=== PATIENT | female | born 1940 | race Caucasian/White ===

== ENCOUNTER → 2018-05-11 15:27 | Outpatient (CLI) | payer OTHER, SELFPAY ==
--- NOTE | 2018-05-11 | DI.RAD.S_ITS ---
PROCEDURE: XR SHOULDER LT 1V INDICATIONS: PAIN TECHNIQUE: Single of the shoulder were acquired. COMPARISON: None. FINDINGS: Bones: No fractures or dislocations. No suspicious bony lesions. Visualized ribs appear intact. Moderate acromioclavicular and mild glenohumeral joint degeneration Soft tissues: No suspicious soft tissue calcifications. IMPRESSION: Left shoulder joint degeneration as above. Dictated by: Nic Adams M.D. on 05/11/2018 at 16:58 Approved by: Nic Adams M.D. on 05/11/2018 at 17:10
== END ==
PROVIDERS: PCP Physician Assistant; Visit Provider Student in an Organized Health Care Education/Training Program
DX: M25.512 Pain in left shoulder (principal); M19.012 Primary osteoarthritis, left shoulder
CPT/HCPCS: 73020

== ENCOUNTER → 2019-03-08 12:39 | Outpatient (CLI) | payer OTHER, SELFPAY | PROVIDERS: PCP Physician Assistant; Visit Provider Internal Medicine Rheumatology | DX: M85.832 Other specified disorders of bone density and structure, left forearm (principal); Z78.0 Asymptomatic menopausal state | CPT/HCPCS: 77080 ==

== ENCOUNTER → 2019-07-25 10:03 | Outpatient (CLI) | payer MEDICARE, MEDICAID, SELFPAY ==
--- NOTE | 2019-07-25 | DI.RAD.S_ITS ---
PROCEDURE: XR HIP W PEL IF DONE LT 2V INDICATIONS: Pain in left hip TECHNIQUE: 2 views of the hip were acquired. COMPARISON: None. FINDINGS: Bones: No fractures or dislocations but there is severe degenerative osteoarthritic change at the left hip, with [id number] articulation at the hip joint.. No suspicious bony lesions. The visualized pelvic ring appears intact. Soft tissues: No suspicious soft tissue calcifications or masses. 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 Dictated by: Sim Pimentel M.D. on 07/25/2019 at 12:55 Approved by: Sim Pimentel M.D. on 07/25/2019 at 12:56
[2019-07-25 10:51] LABS: Add Manual Diff / Slide Review NO; Basophils Absolute Auto 100 /uL (0-100); Basophils Percent Auto 1.1 % (0-2); Eosinophils Absolute Auto 100 /uL (0-450); Eosinophils Percent Auto 1.1 % (2-4); Hematocrit 39.9 % (36-46); Hemoglobin 13.7 g/dL (12.0-16.0); Lymphocytes Absolute Auto 1500 /uL (1100-4500); Lymphocytes Percent Auto 27.3 % (25-40); Mean Corpuscular HGB Conc 34.2 % (30-36); Mean Corpuscular Hemoglobin 31.5 PG (26-34); Mean Corpuscular Volume 92.1 fL (80-100); Monocytes Absolute Auto 700 /uL (0-900); Monocytes Percent Auto 12.7 % (3-14); Neutrophils Absolute Auto 3200 /uL (1500-7000); Neutrophils Percent Auto 57.8 % (50-75); Platelet Count 317 X10^3/uL (150-400); Red Blood Cell Count 4.34 X10^6/uL (4.0-5.2); Red Cell Distribution Width 13.7 % (11.6-14.8); White Blood Cell Count 5.5 X10^3/uL (4.5-11.0)
[2019-07-25 11:07] LABS: Hemoglobin A1C% w Est Avg Glu 5.5 % (4.0-6.0)
[2019-07-25 11:30] LABS: Alanine Aminotransferase 17 IU/L (<35); Albumin 3.9 g/dL (3.5-5.0); Albumin Globulin Ratio 1.6 (1.0-2.8); Alkaline Phosphatase 58 U/L (38-126); Aspartate Aminotransferase 23 IU/L (14-36); BUN Creatinine Ratio 17.5 (6-22); Bilirubin Total 0.6 mg/dL (0.2-1.3); Blood Urea Nitrogen 14 mg/dL (7-17); Calcium 9.7 mg/dL (8.4-10.2); Carbon Dioxide 28 mmol/L (22-32); Chloride 105 mmol/L (98-107); Cholesterol 221 mg/dL (140-199); Estimated Glomerular Filt Rate > 60.0 mL/min (>60); Globulin 2.5 g/dL (1.7-4.1); Glucose 92 mg/dL (80-110); HDL Cholesterol 77 mg/dL (40-60); HEMOLYSIS < 15 (0-50); LDL Cholesterol Calculated 118 mg/dL (<100); Potassium 3.9 mmol/L (3.4-5.1); Sodium 140 mmol/L (137-145); Total Protein 6.4 g/dL (6.3-8.2); Triglycerides 129 mg/dL (35-150)
== END ==
PROVIDERS: Referring Provider Student in an Organized Health Care Education/Training Program; Visit Provider Student in an Organized Health Care Education/Training Program
DX: E78.2 Mixed hyperlipidemia (principal); I10 Essential (primary) hypertension; R73.03 Prediabetes; M25.552 Pain in left hip
CPT/HCPCS: 36415; 73502; 80053; 80061; 83036; 85025

== ENCOUNTER 2020-01-31 16:20 | Observation (INO) | payer MEDICARE, MEDICAID, SELFPAY ==
[2020-01-31] VITALS (32 sets, daily range): BP systolic 80–144; BP diastolic 50–69; PULSE 77–95; RESP 9–32; TEMP 35.1–35.9; O2SAT 87–100
--- NOTE | 2020-01-31 16:28 | DI.RAD.S_ITS ---
PROCEDURE: XR CHEST 1V INDICATIONS: syncope TECHNIQUE: One view of the chest was acquired. COMPARISON: None. FINDINGS: Surgical changes and devices: None. Lungs and pleura: Lungs are clear. No pleural effusions or pneumothorax. Mediastinum: Mediastinal contours appear normal. Heart size is normal. Bones and chest wall: No suspicious bony lesions. Overlying soft tissues appear unremarkable. IMPRESSION: Source of syncopal episode is not found. Dictated by: Sim Pimentel M.D. on 01/31/2020 at 16:59 Approved by: Sim Pimentel M.D. on 01/31/2020 at 16:59
--- NOTE | 2020-01-31 16:29 | DI.CT.S_ITS ---
PROCEDURE: CT HEAD/BRAIN WO CON INDICATIONS: syncope TECHNIQUE: Noncontrast 4.5 mm thick angled axial sections acquired from the foramen magnum to the vertex, with coronal and sagittal reformats. For radiation dose reduction, the following was used: automated exposure control, adjustment of mA and/or kV according to patient size. COMPARISON: [facility], CR, XR CHEST 1V, 01/31/2020, 16:21. FINDINGS: Image quality: Excellent. CSF spaces: Basal cisterns are patent. No extra-axial fluid collections. The ventricles are symmetric in size and shape. Brain: No intracranial bleeds or masses. There is cerebral volume loss for age, with resultant ventricular and sulcal prominence. There are periventricular and deep white matter chronic small vessel ischemic changes. There is intracranial internal carotid artery atherosclerosis. Skull and face: Calvarium and visualized facial bones appear intact, without suspicious lesions. Sinuses: Visualized sinuses and mastoids are clear. IMPRESSION: Unremarkable intracranial study for age. No acute intracranial process is seen. If it would be helpful for clinical management decision making, please consider a dedicated brain MRI for further evaluation (assuming that there is no contraindication). Dictated by: Kvng Begum M.D. on 01/31/2020 at 15:45 Approved by: Kvng Begum M.D. on 01/31/2020 at 15:46
[2020-01-31] MEDS: SODIUM CHLORIDE 0.9% 1,000 ML 1000 ML IV ×2 (16:47→17:25)
--- NOTE | 2020-01-31 16:54 | ED_ITS ---
HPI - Syncope <Maria Del Carmen Lechuga DO - Last Filed: 02/01/20 10:48> General Chief Complaint: Syncope Stated Complaint: Near Syncope Time Seen by Provider: 01/31/20 16:27 Source: EMS Mode of arrival: EMS Limitations: no limitations History of Present Illness HPI narrative: Patient is a 79-year-old female who presents after near syncopal episode. Today she is in the kitchen making a spinach salad when she got extremely dizzy and lightheaded and felt like she might pass out. She feels dizzy she gets nauseated she said a few episodes of diarrhea with some abdominal cramping. She denies any weakness numbness or tingling. No visual changes. She was found to be hypotensive for EMS in received 1 L. she has never had anything like this in the past. Related Data Home Medications Medication Instructions Recorded Confirmed CHOLECALCIFEROL (VITAMIN D3) 1,000 iu PO QDAY #0 07/15/10 01/31/20 (Vitamin D3) MULTIVITAMIN (Multivitamin 1 cap PO EVERY DAY #0 07/28/10 01/31/20 -) lisinopril 10 mg PO DAILY 01/31/20 01/31/20 Allergies Allergy/AdvReac Type Severity Reaction Status Date / Time No Known Drug Allergies Allergy Verified 01/31/20 16:34 Review of Systems <DO Cornel Hurtado Last Filed: 02/01/20 10:48> Review of Systems ROS Unobtainable: All systems reviewed & are unremarkable except as noted in HPI and below Constitutional Constitutional: Reports chills, Denies fatigue and Denies frequent falls Eyes Eyes: Denies blind spots and Denies blurry vision ENT Ears, Nose, Mouth, and Throat: Denies change in voice, Reports vertigo, Reports dizziness, Denies neck pain and Denies sore throat Cardiovascular Cardiovascular: Denies chest pain, Denies edema, Reports lightheadedness, Denies dyspnea and Denies dyspnea on exertion Respiratory Respiratory: Denies cough, Denies dyspnea, Denies dyspnea on exertion and Denies wheezing Gastrointestinal Gastrointestinal: Reports abdominal pain, Reports diarrhea, Reports nausea and Reports vomiting Musculoskeletal Musculoskeletal: Denies back pain, Denies neck pain and Denies numbness Integumentary/Breasts Skin/Breast: Denies pruritus, Denies erythema, Denies rash and Denies wounds Neurologic Neurologic: Reports vertigo, Reports dizziness, Denies frequent falls, Denies memory loss and Denies numbness Psychiatric Psychiatric: Denies memory loss Endocrine Endocrine: Denies fatigue Allergic/Immunologic Allergic/Immunologic: Denies wheezing Patient History <Maria Del Carmen Lechuga DO - Last Filed: 02/01/20 10:48> Medical History Hypertension (Chronic) Surgical History History of right hip replacement (Acute) Family History Mother Diverticulosis of colon Father Abdominal aortic aneurysm Social History (Updated 01/31/20 @ 22:04 by CINDA Manzo) marital status: household members: spouse lives independently: Yes caregiver/support person: Yes occupational status: previously employed Previous occupational history: She and her are a [employer] leisure activities: music Smoking Status: Never smoker Smoking Status: Unknown if ever smoked alcohol intake frequency: a few times a week Substance Use Type: does not use Exam <Maria Del Carmen Lechuga DO - Last Filed: 02/01/20 10:48> Initial Vital Signs Initial Vital Signs: Vital Signs Temperature 95.1 F L 01/31/20 16:30 Pulse Rate 90 01/31/20 16:30 Respiratory Rate 15 01/31/20 16:30 Blood Pressure 96/54 L 01/31/20 16:30 Pulse Oximetry 99 01/31/20 16:30 GENERAL: Alert female appears ill HEENT: Head atraumatic,EOMI, no nystagmus pupils reactive, face symmetric, dry mucous membranes CARDIOVASCULAR: Regular rate and rhythm without murmurs, rubs or gallops. RESPIRATORY: Breath sounds equal bilaterally, no wheezes rales or rhonchi. ABDOMEN: Soft, nontender. Normoactive bowel sounds all 4 quadrants. No guarding or rebound. No pulsatile mass EXTREMITIES: Normal range of motion, no clubbing or edema. Neurovascularly intact NEUROLOGICAL: Alert and oriented x4. 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 <Levar Alvares MD - Last Filed: 02/01/20 00:01> Initial Vital Signs Initial Vital Signs: Vital Signs Temperature 95.1 F L 01/31/20 16:30 Pulse Rate 90 01/31/20 16:30 Respiratory Rate 15 01/31/20 16:30 Blood Pressure 96/54 L 01/31/20 16:30 Pulse Oximetry 99 01/31/20 16:30 Course <Maria Del Carmen Lechuga DO - Last Filed: 02/01/20 10:48> Orders Ordered: Acetaminophen (Tylenol) 650 mg PO Q6HR PRN PRN Reason: Fever/Mild Pain (1-3) Naloxone HCl (Narcan) 0.2 mg IV Q2MIN PRN PRN Reason: Opiate Reversal Ondansetron HCl (Zofran) 4 mg IV Q8HR PRN PRN Reason: Nausea And Vomiting Discontinued Medications Sodium Chloride (Normal Saline 0.9%) 1,000 mls @ 1,000 mls/hr IV CONT [facility] Last Infusion: 01/31/20 17:59 Dose: 0 mls/hr Documented by: Admin: 01/31/20 16:47 Dose: 1,000 mls/hr Documented by: CHAIM Sodium Chloride (Normal Saline 0.9%) 1,000 mls @ 1,000 mls/hr IV BOLUS ONE Stop: 01/31/20 18:14 Last Infusion: 01/31/20 18:23 Dose: 0 mls/hr Documented by: Admin: 01/31/20 17:25 Dose: 1,000 mls/hr Documented by: CHAIM Ceftriaxone Sodium/Dextrose (Rocephin) 2 gm in 50 mls @ 100 mls/hr IV NOW ONE Stop: 01/31/20 19:43 Last Infusion: 01/31/20 20:11 Dose: 100 mls/hr Documented by: Admin: 01/31/20 19:41 Dose: 100 mls/hr Documented by: JARONFARL Sodium Chloride (Normal Saline 0.9%) 1,000 mls @ 125 mls/hr IV CONT [facility] Last Admin: 01/31/20 21:58 Dose: 100 mls/hr Documented by: QUIRINOZ Piperacillin/Tazobactam/Dextrose (Zosyn) 4.5 gm in 100 mls @ 200 mls/hr IV Q6H [facility] Last Admin: 02/01/20 05:21 Dose: 200 mls/hr Documented by: Infusion: 02/01/20 01:00 Dose: 200 mls/hr Documented by: Admin: 02/01/20 00:30 Dose: 200 mls/hr Documented by: ABDELRAHMAN Metronidazole (Flagyl) 500 mg in 100 mls @ 100 mls/hr IV Q6H [facility] Last Admin: 02/01/20 05:21 Dose: 100 mls/hr Documented by: Infusion: 02/01/20 01:35 Dose: 100 mls/hr Documented by: Admin: 02/01/20 00:34 Dose: 100 mls/hr Documented by: ABDELRAHMAN Potassium Chloride 40 meq/ (Sodium Chloride) 520 mls @ 130 mls/hr IV NOW ONE Stop: 02/01/20 03:13 Last Infusion: 02/01/20 04:30 Dose: 130 mls/hr Documented by: ABDELRAHMAN Cosigned by: ELIZABETH Admin: 02/01/20 00:30 Dose: 130 mls/hr Documented by: ABDELRAHMAN Cosigned by: ELIZABETH Metronidazole (Flagyl) 500 mg in 100 mls @ 100 mls/hr IV Q6H [facility] Lorazepam (Ativan) 0.5 mg IV NOW ONE Stop: 01/31/20 17:46 Last Admin: 01/31/20 19:44 Dose: Not Given Documented by: JARONFARL Meclizine HCl (Antivert) 25 mg PO NOW ONE Stop: 01/31/20 18:10 Last Admin: 01/31/20 18:12 Dose: 25 mg Documented by: CHAIM Ondansetron HCl (Zofran) 4 mg IV NOW ONE Stop: 01/31/20 16:59 Last Admin: 01/31/20 17:06 Dose: 4 mg Documented by: CHAIM Potassium Chloride (Klor-Con M20) 40 meq PO NOW ONE Stop: 01/31/20 23:14 Last Admin: 02/01/20 00:33 Dose: 40 meq Documented by: ABDELRAHMAN Vital Signs Vital signs: Vital Signs - 8 hr 01/31/20 16:30 01/31/20 16:54 01/31/20 16:58 Temperature 95.1 F L Pulse Rate 90 88 84 Respiratory Rate 15 22 10 L Blood Pressure 96/54 L 80/50 L Pulse Oximetry 99 91 99 01/31/20 17:00 01/31/20 17:05 01/31/20 17:10 Temperature Pulse Rate 84 82 81 Respiratory Rate 9 L 19 10 L Blood Pressure 86/54 L 86/53 L 88/50 L Pulse Oximetry 95 87 L 96 01/31/20 17:33 01/31/20 17:34 01/31/20 17:36 Temperature Pulse Rate 90 90 91 H Respiratory Rate 15 26 H Blood Pressure 117/64 113/57 L Pulse Oximetry 99 100 99 01/31/20 17:40 01/31/20 17:46 01/31/20 17:50 Temperature Pulse Rate 92 H 94 H 95 H Respiratory Rate 32 H 23 22 Blood Pressure 128/59 L 88/54 L 94/58 L Pulse Oximetry 99 99 99 01/31/20 17:55 01/31/20 18:00 01/31/20 18:06 Temperature Pulse Rate 94 H 93 H 92 H Respiratory Rate 21 14 19 Blood Pressure 111/56 L 128/58 L 121/58 L Pulse Oximetry 98 91 98 01/31/20 18:10 01/31/20 18:15 01/31/20 18:20 Temperature Pulse Rate 92 H 89 87 Respiratory Rate 13 13 14 Blood Pressure 121/58 L 110/56 L 107/55 L Pulse Oximetry 96 97 99 01/31/20 18:25 01/31/20 18:30 01/31/20 18:35 Temperature Pulse Rate 87 86 83 Respiratory Rate 15 12 13 Blood Pressure 105/57 L 96/50 L 98/55 L Pulse Oximetry 92 99 99 01/31/20 18:40 01/31/20 18:51 01/31/20 19:00 Temperature Pulse Rate 81 77 79 Respiratory Rate 11 L 21 13 Blood Pressure 96/52 L 97/62 111/63 Pulse Oximetry 99 98 94 01/31/20 19:10 01/31/20 19:20 01/31/20 19:30 Temperature Pulse Rate 82 81 83 Respiratory Rate 20 15 21 Blood Pressure 92/65 101/64 99/63 Pulse Oximetry 99 99 97 01/31/20 19:40 01/31/20 19:50 01/31/20 20:00 Temperature Pulse Rate 84 84 82 Respiratory Rate 13 12 19 Blood Pressure 118/65 126/68 114/60 Pulse Oximetry 98 98 100 <Levar Alvares MD - Last Filed: 02/01/20 00:01> Course Course Narrative: Sign-out from Dr. lechuga, awaiting for repeat labs and reassessment. Time 7:00 p.m.. Time 7:10 p.m.. Patient had large bright red blood per rectum. Not toxic at this time. Paging general surgery as well as hospitalist for admission. Decision to Admit Date: 01/31/20 Decision to Admit time: 19:10 Orders Ordered: Acetaminophen (Tylenol) 650 mg PO Q6HR PRN PRN Reason: Fever/Mild Pain (1-3) Naloxone HCl (Narcan) 0.2 mg IV Q2MIN PRN PRN Reason: Opiate Reversal Ondansetron HCl (Zofran) 4 mg IV Q8HR PRN PRN Reason: Nausea And Vomiting Discontinued Medications Sodium Chloride (Normal Saline 0.9%) 1,000 mls @ 1,000 mls/hr IV CONT [facility] Last Infusion: 01/31/20 17:59 Dose: 0 mls/hr Documented by: Admin: 01/31/20 16:47 Dose: 1,000 mls/hr Documented by: CHAIM Sodium Chloride (Normal Saline 0.9%) 1,000 mls @ 1,000 mls/hr IV BOLUS ONE Stop: 01/31/20 18:14 Last Infusion: 01/31/20 18:23 Dose: 0 mls/hr Documented by: Admin: 01/31/20 17:25 Dose: 1,000 mls/hr Documented by: CHAIM Ceftriaxone Sodium/Dextrose (Rocephin) 2 gm in 50 mls @ 100 mls/hr IV NOW ONE Stop: 01/31/20 19:43 Last Infusion: 01/31/20 20:11 Dose: 100 mls/hr Documented by: Admin: 01/31/20 19:41 Dose: 100 mls/hr Documented by: JARONFARL Sodium Chloride (Normal Saline 0.9%) 1,000 mls @ 125 mls/hr IV CONT [facility] Last Admin: 01/31/20 21:58 Dose: 100 mls/hr Documented by: TARIK Piperacillin/Tazobactam/Dextrose (Zosyn) 4.5 gm in 100 mls @ 200 mls/hr IV Q6H [facility] Last Admin: 02/01/20 05:21 Dose: 200 mls/hr Documented by: Infusion: 02/01/20 01:00 Dose: 200 mls/hr Documented by: Admin: 02/01/20 00:30 Dose: 200 mls/hr Documented by: ABDELRAHMAN Metronidazole (Flagyl) 500 mg in 100 mls @ 100 mls/hr IV Q6H [facility] Last Admin: 02/01/20 05:21 Dose: 100 mls/hr Documented by: Infusion: 02/01/20 01:35 Dose: 100 mls/hr Documented by: Admin: 02/01/20 00:34 Dose: 100 mls/hr Documented by: ABDELRAHMAN Potassium Chloride 40 meq/ (Sodium Chloride) 520 mls @ 130 mls/hr IV NOW ONE Stop: 02/01/20 03:13 Last Infusion: 02/01/20 04:30 Dose: 130 mls/hr Documented by: ABDELRAHMAN Cosigned by: ELIZABETH Admin: 02/01/20 00:30 Dose: 130 mls/hr Documented by: ABDELRAHMAN Cosigned by: ELIZABETH Metronidazole (Flagyl) 500 mg in 100 mls @ 100 mls/hr IV Q6H [facility] Lorazepam (Ativan) 0.5 mg IV NOW ONE Stop: 01/31/20 17:46 Last Admin: 01/31/20 19:44 Dose: Not Given Documented by: MMCFARL Meclizine HCl (Antivert) 25 mg PO NOW ONE Stop: 01/31/20 18:10 Last Admin: 01/31/20 18:12 Dose: 25 mg Documented by: CHAIM Ondansetron HCl (Zofran) 4 mg IV NOW ONE Stop: 01/31/20 16:59 Last Admin: 01/31/20 17:06 Dose: 4 mg Documented by: CHAIM Potassium Chloride (Klor-Con M20) 40 meq PO NOW ONE Stop: 01/31/20 23:14 Last Admin: 02/01/20 00:33 Dose: 40 meq Documented by: RMCDONOUGH Reevaluation(s) Reevaluation #1: Slowing down on rectal bleeding. Time: 19:28 Consultations Consultation #1: Spoke with general surgery Dr. Noyola, he will follow along. Agrees at this time no Protonix as likely lower GI bleed. Time: 19:28 Consultation #2: Spoke with hospitalist, Chelsie, does not want patient to go ICU. Will admit. Time: 19:47 Vital Signs Vital signs: Vital Signs - 8 hr 01/31/20 16:30 01/31/20 16:54 01/31/20 16:58 Temperature 95.1 F L Pulse Rate 90 88 84 Respiratory Rate 15 22 10 L Blood Pressure 96/54 L 80/50 L Pulse Oximetry 99 91 99 01/31/20 17:00 01/31/20 17:05 01/31/20 17:10 Temperature Pulse Rate 84 82 81 Respiratory Rate 9 L 19 10 L Blood Pressure 86/54 L 86/53 L 88/50 L Pulse Oximetry 95 87 L 96 01/31/20 17:33 01/31/20 17:34 01/31/20 17:36 Temperature Pulse Rate 90 90 91 H Respiratory Rate 15 26 H Blood Pressure 117/64 113/57 L Pulse Oximetry 99 100 99 01/31/20 17:40 01/31/20 17:46 01/31/20 17:50 Temperature Pulse Rate 92 H 94 H 95 H Respiratory Rate 32 H 23 22 Blood Pressure 128/59 L 88/54 L 94/58 L Pulse Oximetry 99 99 99 01/31/20 17:55 01/31/20 18:00 01/31/20 18:06 Temperature Pulse Rate 94 H 93 H 92 H Respiratory Rate 21 14 19 Blood Pressure 111/56 L 128/58 L 121/58 L Pulse Oximetry 98 91 98 01/31/20 18:10 01/31/20 18:15 01/31/20 18:20 Temperature Pulse Rate 92 H 89 87 Respiratory Rate 13 13 14 Blood Pressure 121/58 L 110/56 L 107/55 L Pulse Oximetry 96 97 99 01/31/20 18:25 01/31/20 18:30 01/31/20 18:35 Temperature Pulse Rate 87 86 83 Respiratory Rate 15 12 13 Blood Pressure 105/57 L 96/50 L 98/55 L Pulse Oximetry 92 99 99 01/31/20 18:40 01/31/20 18:51 01/31/20 19:00 Temperature Pulse Rate 81 77 79 Respiratory Rate 11 L 21 13 Blood Pressure 96/52 L 97/62 111/63 Pulse Oximetry 99 98 94 01/31/20 19:10 01/31/20 19:20 01/31/20 19:30 Temperature Pulse Rate 82 81 83 Respiratory Rate 20 15 21 Blood Pressure 92/65 101/64 99/63 Pulse Oximetry 99 99 97 01/31/20 19:40 01/31/20 19:50 01/31/20 20:00 Temperature Pulse Rate 84 84 82 Respiratory Rate 13 12 19 Blood Pressure 118/65 126/68 114/60 Pulse Oximetry 98 98 100 MDM - Syncope <Maria Del Carmen Lechuga DO - Last Filed: 02/01/20 10:48> Lab Data Attestation: I reviewed the patient's lab results. Result diagrams: 02/01/20 05:01 02/01/20 05:01 Labs: Lab Results 01/31/20 01/31/20 01/31/20 Range/Units 16:53 16:53 16:53 WBC 20.0 H (4.5-11.0) X10^3/uL RBC 4.83 (4.0-5.2) X10^6/uL Hgb 14.9 (12.0-16.0) g/dL Hct 45.5 (36-46) % MCV 94.2 (80-100) fL MCH 30.9 (26-34) PG MCHC 32.8 (30-36) % RDW 13.1 (11.6-14.8) % Plt Count 321 (150-400) X10^3/uL Neut % (Auto) 81.6 H (50-75) % Lymph % (Auto) 10.6 L (25-40) % [place] % (Auto) 5.1 (3-14) % Eos % (Auto) 1.4 L (2-4) % Baso % (Auto) 1.3 (0-2) % Neut # (Auto) 15490 H (9848-9846) /uL Lymph # (Auto) 2100 (9118-0885) /uL [place] # (Auto) 1000 H (0-900) /uL Eos # (Auto) 300 (0-450) /uL Baso # (Auto) 300 H (0-100) /uL Sodium 137 (137-145) mmol/L Potassium 3.3 L (3.4-5.1) mmol/L Chloride 106 (98-107) mmol/L Carbon Dioxide 19 L (22-32) mmol/L BUN 26 H (7-17) mg/dL Creatinine 0.99 (0.52-1.04) mg/dL Estimated GFR 54.1 L (>60) mL/min BUN/Creatinine Ratio 26.3 H (6-22) Glucose 160 H (80-110) mg/dL Lactate 4.0 H (0.7-2.1) mmol/L Calcium 10.0 (8.4-10.2) mg/dL Magnesium 1.6 (1.6-2.3) mg/dL Total Bilirubin 0.7 (0.2-1.3) mg/dL AST 36 (14-36) IU/L ALT 18 (<35) IU/L Alkaline Phosphatase 74 (38-126) U/L Total Creatine Kinase 53 (30-135) U/L CK-MB (CK-2) TNP CK-MB (CK-2) Rel Index TNP Troponin I < 0.012 (0.01-0.034) ng/mL NT-Pro-B Natriuret Pep 249 (<450) pg/mL Total Protein 5.8 L (6.3-8.2) g/dL Albumin 3.5 (3.5-5.0) g/dL Globulin 2.3 (1.7-4.1) g/dL Albumin/Globulin Ratio 1.5 (1.0-2.8) Procalcitonin (<0.5) ng/mL Urine RBC (0-5/HPF) Urine WBC (0-5/HPF) Ur Squamous Epith Cells (0-5/HPF) Urine Bacteria (None) Ur Culture Indicated? COVID-19 PCR (Negative) Blood Type Antibody Screen 01/31/20 01/31/20 01/31/20 Range/Units 16:58 18:00 19:00 WBC (4.5-11.0) X10^3/uL RBC (4.0-5.2) X10^6/uL Hgb (12.0-16.0) g/dL Hct (36-46) % MCV (80-100) fL MCH (26-34) PG MCHC (30-36) % RDW (11.6-14.8) % Plt Count (150-400) X10^3/uL Neut % (Auto) (50-75) % Lymph % (Auto) (25-40) % [place] % (Auto) (3-14) % Eos % (Auto) (2-4) % Baso % (Auto) (0-2) % Neut # (Auto) (7169-8973) /uL Lymph # (Auto) (9738-9515) /uL [place] # (Auto) (0-900) /uL Eos # (Auto) (0-450) /uL Baso # (Auto) (0-100) /uL Sodium (137-145) mmol/L Potassium (3.4-5.1) mmol/L Chloride (98-107) mmol/L Carbon Dioxide (22-32) mmol/L BUN (7-17) mg/dL Creatinine (0.52-1.04) mg/dL Estimated GFR (>60) mL/min BUN/Creatinine Ratio (6-22) Glucose (80-110) mg/dL Lactate 2.5 H (0.7-2.1) mmol/L Calcium (8.4-10.2) mg/dL Magnesium (1.6-2.3) mg/dL Total Bilirubin (0.2-1.3) mg/dL AST (14-36) IU/L ALT (<35) IU/L Alkaline Phosphatase (38-126) U/L Total Creatine Kinase (30-135) U/L CK-MB (CK-2) CK-MB (CK-2) Rel Index Troponin I (0.01-0.034) ng/mL NT-Pro-B Natriuret Pep (<450) pg/mL Total Protein (6.3-8.2) g/dL Albumin (3.5-5.0) g/dL Globulin (1.7-4.1) g/dL Albumin/Globulin Ratio (1.0-2.8) Procalcitonin < 0.05 (<0.5) ng/mL Urine RBC 5-10/hpf H (0-5/HPF) Urine WBC 0-1/hpf (0-5/HPF) Ur Squamous Epith Cells 0-1 /hpf (0-5/HPF) Urine Bacteria Occasional (0-1) (None) Ur Culture Indicated? Cult not indicated COVID-19 PCR (Negative) Blood Type Antibody Screen 01/31/20 01/31/20 01/31/20 Range/Units 19:15 19:46 19:46 WBC 21.7 H (4.5-11.0) X10^3/uL RBC 4.60 (4.0-5.2) X10^6/uL Hgb 14.2 (12.0-16.0) g/dL Hct 42.8 (36-46) % MCV 93.2 (80-100) fL MCH 30.9 (26-34) PG MCHC 33.2 (30-36) % RDW 12.8 (11.6-14.8) % Plt Count 290 (150-400) X10^3/uL Neut % (Auto) 82.8 H (50-75) % Lymph % (Auto) 5.4 L (25-40) % [place] % (Auto) 11.1 (3-14) % Eos % (Auto) 0.2 L (2-4) % Baso % (Auto) 0.5 (0-2) % Neut # (Auto) 86948 H (3732-2031) /uL Lymph # (Auto) 1200 (0216-3124) /uL [place] # (Auto) 2400 H (0-900) /uL Eos # (Auto) 0 (0-450) /uL Baso # (Auto) 100 (0-100) /uL Sodium (137-145) mmol/L Potassium (3.4-5.1) mmol/L Chloride (98-107) mmol/L Carbon Dioxide (22-32) mmol/L BUN (7-17) mg/dL Creatinine (0.52-1.04) mg/dL Estimated GFR (>60) mL/min BUN/Creatinine Ratio (6-22) Glucose (80-110) mg/dL Lactate (0.7-2.1) mmol/L Calcium (8.4-10.2) mg/dL Magnesium (1.6-2.3) mg/dL Total Bilirubin (0.2-1.3) mg/dL AST (14-36) IU/L ALT (<35) IU/L Alkaline Phosphatase (38-126) U/L Total Creatine Kinase (30-135) U/L CK-MB (CK-2) CK-MB (CK-2) Rel Index Troponin I (0.01-0.034) ng/mL NT-Pro-B Natriuret Pep (<450) pg/mL Total Protein (6.3-8.2) g/dL Albumin (3.5-5.0) g/dL Globulin (1.7-4.1) g/dL Albumin/Globulin Ratio (1.0-2.8) Procalcitonin (<0.5) ng/mL Urine RBC (0-5/HPF) Urine WBC (0-5/HPF) Ur Squamous Epith Cells (0-5/HPF) Urine Bacteria (None) Ur Culture Indicated? COVID-19 PCR Negative (Negative) Blood Type O Positive Antibody Screen Negative Point of Care Testing Stool Occult Blood Positive Urine Dip Bedside Urine Glucose Negative Bedside Urine Bilirubin - Negative Bedside Urine Ketone - Negative Urine Specific [place] 1.015 Bedside Urine Occult Blood +/- Bedside Urine pH 8.0 Bedside Urine Protein + 30 Bedside Urine Urobilinogen - Negative Bedside Urine Nitrite - Negative Bedside Urine Leukocytes - Negative Esterase Imaging Data CT scan - head: Radiologist's Impression: PROCEDURE: CT HEAD/BRAIN WO CON INDICATIONS: syncope TECHNIQUE: Noncontrast 4.5 mm thick angled axial sections acquired from the foramen magnum to the vertex, with coronal and sagittal reformats. For radiation dose reduction, the following was used: automated exposure control, adjustment of mA and/or kV according to patient size. COMPARISON: [facility], CR, XR CHEST 1V, 01/31/2020, 16:21. FINDINGS: Image quality: Excellent. CSF spaces: Basal cisterns are patent. No extra-axial fluid collections. The ventricles are symmetric in size and shape. Brain: No intracranial bleeds or masses. There is cerebral volume loss for age, with resultant ventricular and sulcal prominence. There are periventricular and deep white matter chronic small vessel ischemic changes. There is intracranial internal carotid artery atherosclerosis. Skull and face: Calvarium and visualized facial bones appear intact, without suspicious lesions. Sinuses: Visualized sinuses and mastoids are clear. IMPRESSION: Unremarkable intracranial study for age. No acute intracranial process is seen. If it would be helpful for clinical management decision making, please consider a dedicated brain MRI for further evaluation (assuming that there is no contraindication). Dictated by: Kvng Begum M.D. on 01/31/2020 at 15:45 Approved by: Kvng Begum M.D. on 01/31/2020 at 15:46 CTA - brain/neck: Radiologist's Impression: PROCEDURE: CT ANGIO HEAD AND NECK INDICATIONS: dizzy and hypotensive TECHNIQUE: Noncontrast images were performed earlier in the day and not repeated. After the administration of intravenous contrast, 1 mm thick sections acquired from the aortic arch through the [place]. Post-contrast 4.5 mm thick sections then re- acquired from the foramen magnum to the vertex. 3-dimensional [id number] (MIP) and/or volume rendering reformats were acquired of the central intracranial vasculature and neck separately. COMPARISON: [facility], CT, CT HEAD/BRAIN WO CON, 01/31/2020, 16:34. [facility], CT, CT ANGIO CHEST ABDOMEN PELVIS, 01/31/2020, 17:11. FINDINGS: Image quality: Excellent. BRAIN: CSF spaces: Ventricles are normal in size and shape. Basal cisterns are patent. No extra-axial fluid collections. Brain: No midline shift. No intracranial bleeds or masses. [place]-white matter interface appears intact. Skull and face: Calvarium and facial bones appear intact, without suspicious lesions. Orbits appear normal. Incidental note is made of hyperostosis frontalis. This is not considered to be pathologic in a woman of this age. Sinuses: Sinuses and mastoids are clear. HEAD CT ANGIOGRAPHY: Anterior circulation: Intracranial internal carotid arteries are normal in size and flow. The flow within the paired anterior cerebral arteries is normal and symmetric. The flow within the middle cerebral arteries is normal and symmetric. The anterior communicating artery is seen. No aneurysms are seen. Posterior circulation: Visualized portions of the vertebral arteries demonstrate normal caliber, and join to form a normal appearing basilar artery. There is a prominent left posterior communicating artery seen, with an accompanying diminutive left P1 segment. This is attributed to a type origin of the left posterior cerebral artery, which is considered to be a normal developmental variant of typically no clinical conseq uence. Flow within the posterior cerebral arteries is normal and symmetric. No aneurysms are seen. NECK CT ANGIOGRAPHY: Carotid system: The great vessels demonstrate a conventional anatomy as they arise from the aortic arch. The origins of the common carotid arteries appear patent. The common carotid arteries demonstrate normal caliber and courses. The bifurcation regions are both widely patent. The internal carotid arteries demonstrate normal calibers and courses. Posterior circulation: The origins of the vertebral arteries both appear widely patent. The more superior extracranial portions of both vertebral arteries also demonstrate normal courses and calibers. They join to form a normal appearing basilar artery. Soft tissues: Visualized neck soft tissues demonstrate no suspicious abnormalities. There is a right thyroid nodule seen that measures up to 13 millimeters craniocaudal. Bones: No suspicious bony lesions. Visualized cervical spine appears normally aligned. Moderate cervical spine degenerative changes are seen. IMPRESSION: No significant intracranial arterial abnormality is seen. Within the arteries of the neck, no hemodynamically significant stenosis can be seen. Right thyroid nodule incidentally noted. If clinically appropriate, please consider a follow-up thyroid ultrasound for further evaluation. Incidental note is made of: type origin of the left posterior cerebral artery. Any quantitative measurements of stenosis were performed using NASCET criteria. Dictated by: Kvng Begum M.D. on 01/31/2020 at 16:48 Approved by: Kvng Begum M.D. on 01/31/2020 at 16:56 CT scan - abdomen/pelvis: Radiologist's Impression: PROCEDURE: CT ANGIO CHEST ABDOMEN PELVIS INDICATIONS: dizzy hypotensinve TECHNIQUE: Precontrast 5 mm thick sections acquired from the lung apices to the iliac crests. After the administration of intravenous contrast, 2.5 mm thick sections again acquired from the lung apices to the iliac crests. Maximum intensity projection (MIP) oblique sagittal and coronal reformats were then acquired. For radiation dose reduction, the following was used: automated exposure control. COMPARISON: None. FINDINGS: Image quality: Excellent. AORTA: No evidence of aortic dissection, aneurysm, or significant stenosis. CHEST: Lungs and pleura: No acute airspace opacities. No pleural effusions or pneumothorax. Central and peripheral airways are patent and normal in caliber. Mediastinum: Heart size is normal. No pericardial effusion. No mediastinal or hilar adenopathy by size criteria. Central pulmonary arteries are normal in size. Esophagus is normal in caliber. No hiatal hernias. Bones and chest wall: No axillary adenopathy by size criteria. Thyroid gland demonstrates bilateral nodules, measuring 11 mm on the right and roughly 4 mm and 5 mm on the left.. No suspicious bony lesions. No vertebral body compression fractures. ABDOMEN: Vasculature: Celiac trunk and mesenteric arteries are patent. Renal arteries are also patent. Solid organs: Liver is normal in size and enhancement. Gallbladder is within normal limits . Biliary system is non dilated. Pancreas enhances normally. Spleen is normal in size and enhancement. No adrenal nodules. Both kidneys are normal in size and enhancement, without hydronephrosis. Peritoneum and bowel: No pneumoperitoneum. Trace free fluid within the pelvis. No significant bowel distension. Stomach is nondistended. There is thickening of multiple small bowel loops throughout the central and left hemiabdomen predominantly, as well as the descending colon and rectum. There is fluid within the right colon. Appendix is within normal limits. Nodes and vessels: No retroperitoneal or mesenteric adenopathy by size criteria. Inferior vena cava is normal in morphology. Miscellaneous: No ventral hernias. PELVIS: Genitourinary: Bladder wall thickness is normal. Miscellaneous: No inguinal hernias or adenopathy. No ventral hernias. Bones: No suspicious bony lesions. Right hip arthroplasty. No vertebral body compression fractures. IMPRESSION: 1. No acute process involving the thoracoabdominal aorta. 2. Thickening of multiple small and large bowel loops. Differential considerations include ischemia, infection, and inflammation. Trace amount of reactive fluid within the peritoneal cavity. 3. Normal appendix. 4. Small hiatal hernia. Dictated by: Linda Brewster M.D. on 01/31/2020 at 17:44 Approved by: Linda Brewster M.D. on 01/31/2020 at 17:47 ECG Data Attestation: I personally reviewed and interpreted this ECG as follows: Prior ECG tracings: available for review Interpretation: Normal sinus rhythm rate 88 p.r. interval 138 QRS [address] changes MDM Narrative Medical decision making narrative: Patient extremely dizzy with any sort of movement and noted to be hypotensive significantly initially upon arrival. Initial head CT is negative however persistently hypotensive despite IV fluid and having some abdominal cramping. Concern for possible posterior stroke versus abdominal abnormality. CT angio head and neck chest abdomen pelvis are essentially negative. No aneurysm. She has been nauseous despite Zofran. However when she returned from CT her blood pressure was normalizing patient's symptoms seem to be resolving. She is given 1 dose of meclizine. Patient is now able to open her eyes but still does not feel quite right. Blood pressure again is dropping slightly. She continues to be cold. She is found have a lactic at acid of 4 and leukocytosis of 20 however she is afebrile and this does not seem to clinically that sepsis/Infectious picture. Patient is signed out to for further treatment <Levar Alvares MD - Last Filed: 02/01/20 00:01> Lab Data Labs: Lab Results 01/31/20 01/31/20 01/31/20 Range/Units 16:53 16:53 16:53 WBC 20.0 H (4.5-11.0) X10^3/uL RBC 4.83 (4.0-5.2) X10^6/uL Hgb 14.9 (12.0-16.0) g/dL Hct 45.5 (36-46) % MCV 94.2 (80-100) fL MCH 30.9 (26-34) PG MCHC 32.8 (30-36) % RDW 13.1 (11.6-14.8) % Plt Count 321 (150-400) X10^3/uL Neut % (Auto) 81.6 H (50-75) % Lymph % (Auto) 10.6 L (25-40) % [place] % (Auto) 5.1 (3-14) % Eos % (Auto) 1.4 L (2-4) % Baso % (Auto) 1.3 (0-2) % Neut # (Auto) 46822 H (8896-6034) /uL Lymph # (Auto) 2100 (9825-5994) /uL [place] # (Auto) 1000 H (0-900) /uL Eos # (Auto) 300 (0-450) /uL Baso # (Auto) 300 H (0-100) /uL Sodium 137 (137-145) mmol/L Potassium 3.3 L (3.4-5.1) mmol/L Chloride 106 (98-107) mmol/L Carbon Dioxide 19 L (22-32) mmol/L BUN 26 H (7-17) mg/dL Creatinine 0.99 (0.52-1.04) mg/dL Estimated GFR 54.1 L (>60) mL/min BUN/Creatinine Ratio 26.3 H (6-22) Glucose 160 H (80-110) mg/dL Lactate 4.0 H (0.7-2.1) mmol/L Calcium 10.0 (8.4-10.2) mg/dL Magnesium 1.6 (1.6-2.3) mg/dL Total Bilirubin 0.7 (0.2-1.3) mg/dL AST 36 (14-36) IU/L ALT 18 (<35) IU/L Alkaline Phosphatase 74 (38-126) U/L Total Creatine Kinase 53 (30-135) U/L CK-MB (CK-2) TNP CK-MB (CK-2) Rel Index TNP Troponin I < 0.012 (0.01-0.034) ng/mL NT-Pro-B Natriuret Pep 249 (<450) pg/mL Total Protein 5.8 L (6.3-8.2) g/dL Albumin 3.5 (3.5-5.0) g/dL Globulin 2.3 (1.7-4.1) g/dL Albumin/Globulin Ratio 1.5 (1.0-2.8) Procalcitonin (<0.5) ng/mL Urine RBC (0-5/HPF) Urine WBC (0-5/HPF) Ur Squamous Epith Cells (0-5/HPF) Urine Bacteria (None) Ur Culture Indicated? COVID-19 PCR (Negative) Blood Type Antibody Screen 01/31/20 01/31/20 01/31/20 Range/Units 16:58 18:00 19:00 WBC (4.5-11.0) X10^3/uL RBC (4.0-5.2) X10^6/uL Hgb (12.0-16.0) g/dL Hct (36-46) % MCV (80-100) fL MCH (26-34) PG MCHC (30-36) % RDW (11.6-14.8) % Plt Count (150-400) X10^3/uL Neut % (Auto) (50-75) % Lymph % (Auto) (25-40) % [place] % (Auto) (3-14) % Eos % (Auto) (2-4) % Baso % (Auto) (0-2) % Neut # (Auto) (9745-6079) /uL Lymph # (Auto) (8981-0858) /uL [place] # (Auto) (0-900) /uL Eos # (Auto) (0-450) /uL Baso # (Auto) (0-100) /uL Sodium (137-145) mmol/L Potassium (3.4-5.1) mmol/L Chloride (98-107) mmol/L Carbon Dioxide (22-32) mmol/L BUN (7-17) mg/dL Creatinine (0.52-1.04) mg/dL Estimated GFR (>60) mL/min BUN/Creatinine Ratio (6-22) Glucose (80-110) mg/dL Lactate 2.5 H (0.7-2.1) mmol/L Calcium (8.4-10.2) mg/dL Magnesium (1.6-2.3) mg/dL Total Bilirubin (0.2-1.3) mg/dL AST (14-36) IU/L ALT (<35) IU/L Alkaline Phosphatase (38-126) U/L Total Creatine Kinase (30-135) U/L CK-MB (CK-2) CK-MB (CK-2) Rel Index Troponin I (0.01-0.034) ng/mL NT-Pro-B Natriuret Pep (<450) pg/mL Total Protein (6.3-8.2) g/dL Albumin (3.5-5.0) g/dL Globulin (1.7-4.1) g/dL Albumin/Globulin Ratio (1.0-2.8) Procalcitonin < 0.05 (<0.5) ng/mL Urine RBC 5-10/hpf H (0-5/HPF) Urine WBC 0-1/hpf (0-5/HPF) Ur Squamous Epith Cells 0-1 /hpf (0-5/HPF) Urine Bacteria Occasional (0-1) (None) Ur Culture Indicated? Cult not indicated COVID-19 PCR (Negative) Blood Type Antibody Screen 01/31/20 01/31/20 01/31/20 Range/Units 19:15 19:46 19:46 WBC 21.7 H (4.5-11.0) X10^3/uL RBC 4.60 (4.0-5.2) X10^6/uL Hgb 14.2 (12.0-16.0) g/dL Hct 42.8 (36-46) % MCV 93.2 (80-100) fL MCH 30.9 (26-34) PG MCHC 33.2 (30-36) % RDW 12.8 (11.6-14.8) % Plt Count 290 (150-400) X10^3/uL Neut % (Auto) 82.8 H (50-75) % Lymph % (Auto) 5.4 L (25-40) % [place] % (Auto) 11.1 (3-14) % Eos % (Auto) 0.2 L (2-4) % Baso % (Auto) 0.5 (0-2) % Neut # (Auto) 71893 H (1187-6885) /uL Lymph # (Auto) 1200 (9798-2154) /uL [place] # (Auto) 2400 H (0-900) /uL Eos # (Auto) 0 (0-450) /uL Baso # (Auto) 100 (0-100) /uL Sodium (137-145) mmol/L Potassium (3.4-5.1) mmol/L Chloride (98-107) mmol/L Carbon Dioxide (22-32) mmol/L BUN (7-17) mg/dL Creatinine (0.52-1.04) mg/dL Estimated GFR (>60) mL/min BUN/Creatinine Ratio (6-22) Glucose (80-110) mg/dL Lactate (0.7-2.1) mmol/L Calcium (8.4-10.2) mg/dL Magnesium (1.6-2.3) mg/dL Total Bilirubin (0.2-1.3) mg/dL AST (14-36) IU/L ALT (<35) IU/L Alkaline Phosphatase (38-126) U/L Total Creatine Kinase (30-135) U/L CK-MB (CK-2) CK-MB (CK-2) Rel Index Troponin I (0.01-0.034) ng/mL NT-Pro-B Natriuret Pep (<450) pg/mL Total Protein (6.3-8.2) g/dL Albumin (3.5-5.0) g/dL Globulin (1.7-4.1) g/dL Albumin/Globulin Ratio (1.0-2.8) Procalcitonin (<0.5) ng/mL Urine RBC (0-5/HPF) Urine WBC (0-5/HPF) Ur Squamous Epith Cells (0-5/HPF) Urine Bacteria (None) Ur Culture Indicated? COVID-19 PCR Negative (Negative) Blood Type O Positive Antibody Screen Negative Point of Care Testing Stool Occult Blood Positive Urine Dip Bedside Urine Glucose Negative Bedside Urine Bilirubin - Negative Bedside Urine Ketone - Negative Urine Specific [place] 1.015 Bedside Urine Occult Blood +/- Bedside Urine pH 8.0 Bedside Urine Protein + 30 Bedside Urine Urobilinogen - Negative Bedside Urine Nitrite - Negative Bedside Urine Leukocytes - Negative Esterase Discharge Plan Departure Patient Disposition: Admitted As Inpatient Clinical Impression: Thyroid nodule, Vertigo, Acute GI bleeding Discharge Date/Time: 01/31/20 20:20 Admit Date/Time: 01/31/20 20:06 Admit Provider: Jaida Adams
--- NOTE | 2020-01-31 16:58 | DI.CT.S_ITS ---
PROCEDURE: CT ANGIO HEAD AND NECK INDICATIONS: dizzy and hypotensive TECHNIQUE: Noncontrast images were performed earlier in the day and not repeated. After the administration of intravenous contrast, 1 mm thick sections acquired from the aortic arch through the [place]. Post-contrast 4.5 mm thick sections then re-acquired from the foramen magnum to the vertex. 3-dimensional ezpguen-cwybgqahn-awyfqpkjjb (MIP) and/or volume rendering reformats were acquired of the central intracranial vasculature and neck separately. COMPARISON: [facility], CT, CT HEAD/BRAIN WO CON, 01/31/2020, 16:34. [facility], CT, CT ANGIO CHEST ABDOMEN PELVIS, 01/31/2020, 17:11. FINDINGS: Image quality: Excellent. BRAIN: CSF spaces: Ventricles are normal in size and shape. Basal cisterns are patent. No extra-axial fluid collections. Brain: No midline shift. No intracranial bleeds or masses. [place]-white matter interface appears intact. Skull and face: Calvarium and facial bones appear intact, without suspicious lesions. Orbits appear normal. Incidental note is made of hyperostosis frontalis. This is not considered to be pathologic in a woman of this age. Sinuses: Sinuses and mastoids are clear. HEAD CT ANGIOGRAPHY: Anterior circulation: Intracranial internal carotid arteries are normal in size and flow. The flow within the paired anterior cerebral arteries is normal and symmetric. The flow within the middle cerebral arteries is normal and symmetric. The anterior communicating artery is seen. No aneurysms are seen. Posterior circulation: Visualized portions of the vertebral arteries demonstrate normal caliber, and join to form a normal appearing basilar artery. There is a prominent left posterior communicating artery seen, with an accompanying diminutive left P1 segment. This is attributed to a type origin of the left posterior cerebral artery, which is considered to be a normal developmental variant of typically no clinical consequence. Flow within the posterior cerebral arteries is normal and symmetric. No aneurysms are seen. NECK CT ANGIOGRAPHY: Carotid system: The great vessels demonstrate a conventional anatomy as they arise from the aortic arch. The origins of the common carotid arteries appear patent. The common carotid arteries demonstrate normal caliber and courses. The bifurcation regions are both widely patent. The internal carotid arteries demonstrate normal calibers and courses. Posterior circulation: The origins of the vertebral arteries both appear widely patent. The more superior extracranial portions of both vertebral arteries also demonstrate normal courses and calibers. They join to form a normal appearing basilar artery. Soft tissues: Visualized neck soft tissues demonstrate no suspicious abnormalities. There is a right thyroid nodule seen that measures up to 13 millimeters craniocaudal. Bones: No suspicious bony lesions. Visualized cervical spine appears normally aligned. Moderate cervical spine degenerative changes are seen. IMPRESSION: No significant intracranial arterial abnormality is seen. Within the arteries of the neck, no hemodynamically significant stenosis can be seen. Right thyroid nodule incidentally noted. If clinically appropriate, please consider a follow-up thyroid ultrasound for further evaluation. Incidental note is made of: type origin of the left posterior cerebral artery. Any quantitative measurements of stenosis were performed using NASCET criteria. Dictated by: Kvng Begum M.D. on 01/31/2020 at 16:48 Approved by: Kvng Begum M.D. on 01/31/2020 at 16:56
--- NOTE | 2020-01-31 16:58 | DI.CT.S_ITS ---
PROCEDURE: CT ANGIO CHEST ABDOMEN PELVIS INDICATIONS: dizzy hypotensinve TECHNIQUE: Precontrast 5 mm thick sections acquired from the lung apices to the iliac crests. After the administration of intravenous contrast, 2.5 mm thick sections again acquired from the lung apices to the iliac crests. Maximum intensity projection (MIP) oblique sagittal and coronal reformats were then acquired. For radiation dose reduction, the following was used: automated exposure control. COMPARISON: None. FINDINGS: Image quality: Excellent. AORTA: No evidence of aortic dissection, aneurysm, or significant stenosis. CHEST: Lungs and pleura: No acute airspace opacities. No pleural effusions or pneumothorax. Central and peripheral airways are patent and normal in caliber. Mediastinum: Heart size is normal. No pericardial effusion. No mediastinal or hilar adenopathy by size criteria. Central pulmonary arteries are normal in size. Esophagus is normal in caliber. No hiatal hernias. Bones and chest wall: No axillary adenopathy by size criteria. Thyroid gland demonstrates bilateral nodules, measuring 11 mm on the right and roughly 4 mm and 5 mm on the left.. No suspicious bony lesions. No vertebral body compression fractures. ABDOMEN: Vasculature: Celiac trunk and mesenteric arteries are patent. Renal arteries are also patent. Solid organs: Liver is normal in size and enhancement. Gallbladder is within normal limits . Biliary system is non dilated. Pancreas enhances normally. Spleen is normal in size and enhancement. No adrenal nodules. Both kidneys are normal in size and enhancement, without hydronephrosis. Peritoneum and bowel: No pneumoperitoneum. Trace free fluid within the pelvis. No significant bowel distension. Stomach is nondistended. There is thickening of multiple small bowel loops throughout the central and left hemiabdomen predominantly, as well as the descending colon and rectum. There is fluid within the right colon. Appendix is within normal limits. Nodes and vessels: No retroperitoneal or mesenteric adenopathy by size criteria. Inferior vena cava is normal in morphology. Miscellaneous: No ventral hernias. PELVIS: Genitourinary: Bladder wall thickness is normal. Miscellaneous: No inguinal hernias or adenopathy. No ventral hernias. Bones: No suspicious bony lesions. Right hip arthroplasty. No vertebral body compression fractures. IMPRESSION: 1. No acute process involving the thoracoabdominal aorta. 2. Thickening of multiple small and large bowel loops. Differential considerations include ischemia, infection, and inflammation. Trace amount of reactive fluid within the peritoneal cavity. 3. Normal appendix. 4. Small hiatal hernia. Dictated by: Linda Brewster M.D. on 01/31/2020 at 17:44 Approved by: Linda Brewster M.D. on 01/31/2020 at 17:47
[2020-01-31 17:00] LABS: Add Manual Diff / Slide Review NO; Basophils Absolute Auto 300 /uL (0-100); Basophils Percent Auto 1.3 % (0-2); Eosinophils Absolute Auto 300 /uL (0-450); Eosinophils Percent Auto 1.4 % (2-4); Hematocrit 45.5 % (36-46); Hemoglobin 14.9 g/dL (12.0-16.0); Lymphocytes Absolute Auto 2100 /uL (1100-4500); Lymphocytes Percent Auto 10.6 % (25-40); Mean Corpuscular HGB Conc 32.8 % (30-36); Mean Corpuscular Hemoglobin 30.9 PG (26-34); Mean Corpuscular Volume 94.2 fL (80-100); Monocytes Absolute Auto 1000 /uL (0-900); Monocytes Percent Auto 5.1 % (3-14); Neutrophils Absolute Auto 16400 /uL (1500-7000); Neutrophils Percent Auto 81.6 % (50-75); Platelet Count 321 X10^3/uL (150-400); Red Blood Cell Count 4.83 X10^6/uL (4.0-5.2); Red Cell Distribution Width 13.1 % (11.6-14.8)
[2020-01-31] MEDS: ONDANSETRON 4 MG/2 ML INJ IV (17:06)
--- NOTE | 2020-01-31 17:10 | PC.NURSE ---
Per Dr. Newton, patient finished the 1L NS from the field.
[2020-01-31 17:11] LABS: Alanine Aminotransferase 18 IU/L (<35); Albumin 3.5 g/dL (3.5-5.0); Albumin Globulin Ratio 1.5 (1.0-2.8); Alkaline Phosphatase 74 U/L (38-126); Aspartate Aminotransferase 36 IU/L (14-36); BUN Creatinine Ratio 26.3 (6-22); Bilirubin Total 0.7 mg/dL (0.2-1.3); Blood Urea Nitrogen 26 mg/dL (7-17); Carbon Dioxide 19 mmol/L (22-32); Chloride 106 mmol/L (98-107); Creatine Kinase 53 U/L (30-135); Estimated Glomerular Filt Rate 54.1 mL/min (>60); Globulin 2.3 g/dL (1.7-4.1); Glucose 160 mg/dL (80-110); HEMOLYSIS < 15 (0-50); Magnesium 1.6 mg/dL (1.6-2.3); Potassium 3.3 mmol/L (3.4-5.1); Sodium 137 mmol/L (137-145); Total Protein 5.8 g/dL (6.3-8.2)
[2020-01-31 17:23] LABS: NT-proBNP (BNP-Adult 18+) 249 pg/mL (<450); Troponin I < 0.012 ng/mL (0.01-0.034)
--- NOTE | 2020-01-31 17:25 | PC.NURSE ---
Patient reports being excessively cold. She has been covered with multiple warm blankets and is in room 1 with the temperature turned all the way up. Patient still has goose bumps. Unable to obtain oral temp.
[2020-01-31] MEDS: MECLIZINE HCL 12.5 MG TABLET 25 MG PO (18:12)
[2020-01-31] MEDS: ONDANSETRON 4 MG/2 ML INJ (18:17)
--- NOTE | 2020-01-31 18:24 | PC.NURSE ---
Patient reports violent nausea, vomiting, and diarrhea [employer]. States her dizziness started with that. Does not know what her stool looked like and states she does not think she has had any bleeding lately. Patient states she thinks she is going to have more diarrhea after returning from CT scan. I placed her on the bed bose and now she denies any bowel movement. Pt reports her nausea has decreased and she is not sure about her dizziness because she is not standing. Patent states she thinks she has warmed up as well.
--- NOTE | 2020-01-31 18:29 | PC.NURSE ---
Patient starts falling asleep and O2 drops to 88%. When reminded to take breaths O2 98-100% on room air.
[2020-01-31 18:40] LABS: Bacteria Urine Occasional (0-1); RBC Urine 5-10/HPF (0-5/HPF); Squamous Epithelial Cell Urine 0-1 /HPF (0-5/HPF); WBC Urine 0-1/HPF (0-5/HPF)
[2020-01-31 18:41] LABS: Culture Indicated Urine Cult Not Indicated
[2020-01-31 18:58] LABS: Reflexed Lactate in 2 Hours Y
[2020-01-31 19:21] LABS: Lactate 2HR (Lactic Acid Rflx) 2.5 mmol/L (0.7-2.1)
[2020-01-31] MEDS: CEFTRIAXONE 2 GM/50 ML FROZ.PIGGY IV (19:41)
[2020-01-31 19:59] LABS: Add Manual Diff / Slide Review NO; Basophils Absolute Auto 100 /uL (0-100); Basophils Percent Auto 0.5 % (0-2); Eosinophils Absolute Auto 0 /uL (0-450); Eosinophils Percent Auto 0.2 % (2-4); Hematocrit 42.8 % (36-46); Hemoglobin 14.2 g/dL (12.0-16.0); Lymphocytes Absolute Auto 1200 /uL (1100-4500); Lymphocytes Percent Auto 5.4 % (25-40); Mean Corpuscular HGB Conc 33.2 % (30-36); Mean Corpuscular Hemoglobin 30.9 PG (26-34); Mean Corpuscular Volume 93.2 fL (80-100); Monocytes Absolute Auto 2400 /uL (0-900); Monocytes Percent Auto 11.1 % (3-14); Neutrophils Absolute Auto 18000 /uL (1500-7000); Neutrophils Percent Auto 82.8 % (50-75); Platelet Count 290 X10^3/uL (150-400); Red Cell Distribution Width 12.8 % (11.6-14.8); White Blood Cell Count 21.7 X10^3/uL (4.5-11.0)
[2020-01-31 21:39] LABS: COVID19 -Nasal RAPID Negative (Negative)
--- NOTE | 2020-01-31 21:39 | P.HP_ITS ---
History of Present Illness History of Present Illness Date Patient Seen: 01/31/20 Time Patient Seen: 21:00 Chief complaint: Near Syncope Narrative: Rebecca Saxena is a very pleasant 79-year-old female with hypertension as her only chronic medical condition presented to the emergency department with syncope and then had a bloody diarrhea episode in the emergency department. She was in the kitchen fixing lunch today when she got dizzy and lightheaded and had to ask her blind to walker over to the couch so that she could rest. She had vomiting nausea and diarrhea and has been cold since being in the here in the hospital. She does complain of being dizzy. She had diarrhea today but was not able to tell me if she had blood in it however when she use the bedpan in the ED was bright red blood per the ED provider. Dr. Noyola was consulted and recomm ended that the patient not receive antibiotics and that he would see her in the morning. She continues to complain of being cold so has never had a fever chills or sweats. She denies shortness of breath or chest pain, dysuria, or constipation. She does have abdominal crampiness associated with the diarrhea. She complains of lower extremity edema that she tries to sit with her legs raised. She states that only helps for short while before they swell up again after standing for any period of time. She did state over the past several months, she had diarrhea, vomiting and lightheadedness, but that these episodes only lasted for a minute and subsided. 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 The patient is the primary caregiver for her who has a catheter bag and is in the room with her tonight. A patient goes to [facility] and was diagnosed 2 months ago with hypertension, she was started on lisinopril 10 mg at that time. She also has a diagnosis of polymyalgia rheumatica and was initially started on methotrexate which apparently did not work. That was discontinued and she was put on a prednisone which she completed a tapor she thinks was about a month and half ago. She has never had a colonoscopy despite her mother apparently passing of diverticulitis. She had a head CT, head CTA, chest abdomen and pelvis CTA, all of which were negative for any acute intracranial or intra-abdominal process respectively. CTA of the abdomen and pelvis indicated trace free fluid within the pelvis. No significant bowel distension. Stomach is nondistended. There is thickening of multiple small bowel loops throughout the central and left hemiabdomen predominantly, as well as the descending colon and rectum. There is fluid within the right colon. She was administered ceftriaxone 2 grams in the ED. While she was in the emergency department she was very hypotensive and received a total of 3 L normal saline boluses. As mentioned before, she reportedly had a diarrheal episode with silviano red blood in it. Patient's temp was 96.6?, blood pressure 144/69, heart rate 90, respiratory rate 18, oxygen saturation of 96% on room air, she weighs 79.3 kg with a BMI of 30. WBC is 21.7, RBC 4.60, hemoglobin 14.2, hematocrit 42.8, platelet count 290, she does have a significant left shift, sodium was 137, potassium 3.3, chloride 106, bicarb 19, BUN 26, creatinine 0.99, estimated GFR 54.1, glucose 160, lactate initially was 4.0 decreased to 2.5, liver enzymes within normal limits, troponin was 0.012, proBNP was 249, COVID-19 was negative. Patient History Medical History (Updated 01/31/20 @ 21:55 by CINDA Manzo) Hypertension (Chronic) Surgical History (Updated 01/31/20 @ 22:00 by CINDA Manzo) History of right hip replacement (Acute) Family & Social History Family History (Updated 01/31/20 @ 22:02 by CINDA Manzo) Mother Diverticulosis of colon Father Abdominal aortic aneurysm Social History: household members spouse Prior Living Arrangements Apartment/Condo Safety & Behavioral: Feels Safe in Current Yes Environment Been Physically Hurt or No Threatened By a Person Suicidal Ideation Description None Suicide Plan Description No Plan Tobacco & Substance use: Smoking Status Never smoker alcohol intake frequency a few times a week Substance Use Type does not use Meds Home Medications and Allergies Home Medications Medication Instructions Recorded Confirmed Type CHOLECALCIFEROL (VITAMIN D3) 1,000 iu PO QDAY #0 07/15/10 01/31/20 History (Vitamin D3) MULTIVITAMIN (Multivitamin 1 cap PO EVERY DAY #0 07/28/10 01/31/20 History -) lisinopril 10 mg PO DAILY 01/31/20 01/31/20 History Allergies Allergy/AdvReac Type Severity Reaction Status Date / Time No Known Drug Allergies Allergy Verified 01/31/20 16:34 Review of Systems Review of Systems ROS: Yes All systems reviewed with the patient and are negative except as otherwise documented Exam Vital Signs (past 8 hours): - 01/31/20 16:30 01/31/20 16:54 01/31/20 16:58 Temperature 95.1 F L Pulse Rate 90 88 84 Respiratory Rate 15 22 10 L Blood Pressure 96/54 L 80/50 L Pulse Oximetry 99 91 99 01/31/20 17:00 01/31/20 17:05 01/31/20 17:10 Temperature Pulse Rate 84 82 81 Respiratory Rate 9 L 19 10 L Blood Pressure 86/54 L 86/53 L 88/50 L Pulse Oximetry 95 87 L 96 01/31/20 17:33 01/31/20 17:34 01/31/20 17:36 Temperature Pulse Rate 90 90 91 H Respiratory Rate 15 26 H Blood Pressure 117/64 113/57 L Pulse Oximetry 99 100 99 01/31/20 17:40 01/31/20 17:46 01/31/20 17:50 Temperature Pulse Rate 92 H 94 H 95 H Respiratory Rate 32 H 23 22 Blood Pressure 128/59 L 88/54 L 94/58 L Pulse Oximetry 99 99 99 01/31/20 17:55 01/31/20 18:00 01/31/20 18:06 Temperature Pulse Rate 94 H 93 H 92 H Respiratory Rate 21 14 19 Blood Pressure 111/56 L 128/58 L 121/58 L Pulse Oximetry 98 91 98 01/31/20 18:10 01/31/20 18:15 01/31/20 18:20 Temperature Pulse Rate 92 H 89 87 Respiratory Rate 13 13 14 Blood Pressure 121/58 L 110/56 L 107/55 L Pulse Oximetry 96 97 99 01/31/20 18:25 01/31/20 18:30 01/31/20 18:35 Temperature Pulse Rate 87 86 83 Respiratory Rate 15 12 13 Blood Pressure 105/57 L 96/50 L 98/55 L Pulse Oximetry 92 99 99 01/31/20 18:40 01/31/20 18:51 01/31/20 19:00 Temperature Pulse Rate 81 77 79 Respiratory Rate 11 L 21 13 Blood Pressure 96/52 L 97/62 111/63 Pulse Oximetry 99 98 94 01/31/20 19:10 01/31/20 19:20 01/31/20 19:30 Temperature Pulse Rate 82 81 83 Respiratory Rate 20 15 21 Blood Pressure 92/65 101/64 99/63 Pulse Oximetry 99 99 97 01/31/20 19:40 01/31/20 19:50 01/31/20 20:00 Temperature Pulse Rate 84 84 82 Respiratory Rate 13 12 19 Blood Pressure 118/65 126/68 114/60 Pulse Oximetry 98 98 100 01/31/20 20:10 01/31/20 20:30 Temperature 96.6 F L Pulse Rate 79 90 Respiratory Rate 14 18 Blood Pressure 143/67 H 144/69 H Pulse Oximetry 99 96 Oxygen Delivery Method Room Air Oxygen Flow Rate 0 Narrative Exam Narrative: Gen: Alert, oriented, well-developed 79 y.o. female, appears pale HEENT: normocephalic, atraumatic, conjunctiva clear, sclera non-icteric, oral mucosa pink and moist Neck: supple, full ROM, no JVD, trachea is midline Resp: Lungs course sounding bilateral lower bases, non-labored breathing CV: RRR, no murmur or rubs Abd: soft, non-tender, normoactive BTs Skin: no lesions or rashes, dry and intact Neuro: Alert and oriented X 4 w/no focal deficits. Speech clear and coherent. Extremities: moves all 4 extremities, is ambulatory, negative Prudencio?s sign Psyche: normal mood and affect. Objective Labs Result Diagrams: 01/31/20 19:46 01/31/20 16:53 Labs: Laboratory Results - last 24 hr 01/31/20 01/31/20 01/31/20 16:53 16:53 16:53 WBC 20.0 H RBC 4.83 Hgb 14.9 Hct 45.5 MCV 94.2 MCH 30.9 MCHC 32.8 RDW 13.1 Plt Count 321 Neut % (Auto) 81.6 H Lymph % (Auto) 10.6 L [place] % (Auto) 5.1 Eos % (Auto) 1.4 L Baso % (Auto) 1.3 Neut # (Auto) 30609 H Lymph # (Auto) 2100 [place] # (Auto) 1000 H Eos # (Auto) 300 Baso # (Auto) 300 H Sodium 137 Potassium 3.3 L Chloride 106 Carbon Dioxide 19 L BUN 26 H Creatinine 0.99 Estimated GFR 54.1 L BUN/Creatinine Ratio 26.3 H Glucose 160 H Lactate 4.0 H Calcium 10.0 Magnesium 1.6 Total Bilirubin 0.7 AST 36 ALT 18 Alkaline Phosphatase 74 Total Creatine Kinase 53 CK-MB (CK-2) TNP CK-MB (CK-2) Rel Index TNP Troponin I < 0.012 NT-Pro-B Natriuret Pep 249 Total Protein 5.8 L Albumin 3.5 Globulin 2.3 Albumin/Globulin Ratio 1.5 Urine RBC Urine WBC Ur Squamous Epith Cells Urine Bacteria Ur Culture Indicated? Blood Type Antibody Screen 01/31/20 01/31/20 01/31/20 18:00 19:00 19:46 WBC RBC Hgb Hct MCV MCH MCHC RDW Plt Count Neut % (Auto) Lymph % (Auto) [place] % (Auto) Eos % (Auto) Baso % (Auto) Neut # (Auto) Lymph # (Auto) [place] # (Auto) Eos # (Auto) Baso # (Auto) Sodium Potassium Chloride Carbon Dioxide BUN Creatinine Estimated GFR BUN/Creatinine Ratio Glucose Lactate 2.5 H Calcium Magnesium Total Bilirubin AST ALT Alkaline Phosphatase Total Creatine Kinase CK-MB (CK-2) CK-MB (CK-2) Rel Index Troponin I NT-Pro-B Natriuret Pep Total Protein Albumin Globulin Albumin/Globulin Ratio Urine RBC 5-10/hpf H Urine WBC 0-1/hpf Ur Squamous Epith Cells 0-1 /hpf Urine Bacteria Occasional (0-1) Ur Culture Indicated? Cult not indicated Blood Type O Positive Antibody Screen Negative 01/31/20 19:46 WBC 21.7 H RBC 4.60 Hgb 14.2 Hct 42.8 MCV 93.2 MCH 30.9 MCHC 33.2 RDW 12.8 Plt Count 290 Neut % (Auto) 82.8 H Lymph % (Auto) 5.4 L [place] % (Auto) 11.1 Eos % (Auto) 0.2 L Baso % (Auto) 0.5 Neut # (Auto) 53203 H Lymph # (Auto) 1200 [place] # (Auto) 2400 H Eos # (Auto) 0 Baso # (Auto) 100 Sodium Potassium Chloride Carbon Dioxide BUN Creatinine Estimated GFR BUN/Creatinine Ratio Glucose Lactate Calcium Magnesium Total Bilirubin AST ALT Alkaline Phosphatase Total Creatine Kinase CK-MB (CK-2) CK-MB (CK-2) Rel Index Troponin I NT-Pro-B Natriuret Pep Total Protein Albumin Globulin Albumin/Globulin Ratio Urine RBC Urine WBC Ur Squamous Epith Cells Urine Bacteria Ur Culture Indicated? Blood Type Antibody Screen Assessment & Plan Assessment & Plan narrative: Nilson Lopez is admitted as an inpatient for further workup of syncope and an apparent rectal bleeding episode since arrival. Suspected lower GI bleed, acute, present on admission -Have requested C. difficile and stool cultures -She has been typed and screened -CBC at 0200 -Dr. Noyola was paged by the ED and will see the patient in the am. He recommended no protonix. Leukocytosis of 21.7 with a left shift, unknown if acute, present on admission -Corbin broaden coverage with zosyn 4.5 to address possible pneumonia and/or abdominal process -Procal negative, will repeat in the am. Sepsis in the setting of suspected pneumonia and/or bacterial hemmorhagic enteritis with a a lactate of 2.5, present on admission -Lactate is still elevated at 2.5 but improving from prior, repeat lactate in the am. Syncope of unknown etiology, acute, present on admission -orthostatic vitals -consider echo, would give a lower priority -cardiac monitoring Acute hypokalemia, present on admission -likely due to boluses -she is repleted with 40 mEq IV and PO kcl totalling 80 mEq kcl. Essential hypertension, chronic -She may continue home dose of lisinopril 10 mg as long as her blood pressure can sustain it. Consults: Dr. Noyola, General Surgery, consult and involvement is appreciated. Patient is admitted under inpatient status with expected length of stay greater than 2 midnights due to severity of presenting symptoms, risk of adverse event, and complexity of treatment plan. FEN: NS at 100 ml/hour, NPO except ice and swabs, BMP and magnesium in the am. VTE prophylaxis: Bilateral SCDs Dispo: probable discharge to home Code Status: Full code as discussed with patient Quality VTE Deep Vein Thrombosis/Pulmonary Embolism Present on Admission: No
[2020-01-31] MEDS: SODIUM CHLORIDE 0.9% 1,000 ML 100 ML IV (21:58)
[2020-01-31 23:20] LABS: Procalcitonin < 0.05 ng/mL (<0.5)
[2020-02-01] VITALS: BP 144/66; PULSE 90; RESP 18; TEMP 36.4; O2SAT 95
[2020-02-01] MEDS: PIPERACILLIN-TAZO 4.5 GM/100 ML FROZ.PIGGY IV ×2 (00:30→05:21)
[2020-02-01] MEDS: POTASSIUM CHLORIDE 40 MEQ in SODIUM CHLORIDE 0.9% 500 ML 130 ML IV (00:30)
[2020-02-01] MEDS: POTASSIUM CHLORIDE 20 MEQ TAB 40 MEQ PO (00:33)
[2020-02-01] MEDS: metroNIDAZOLE 500 MG/100 ML PIGGYBACK 100 MG IV ×2 (00:34→05:21)
[2020-02-01 02:10] LABS: Add Manual Diff / Slide Review NO; Basophils Absolute Auto 0 /uL (0-100); Basophils Percent Auto 0.3 % (0-2); Eosinophils Absolute Auto 0 /uL (0-450); Eosinophils Percent Auto 0.1 % (2-4); Hematocrit 35.1 % (36-46); Lymphocytes Absolute Auto 800 /uL (1100-4500); Lymphocytes Percent Auto 5.5 % (25-40); Mean Corpuscular HGB Conc 34.1 % (30-36); Mean Corpuscular Hemoglobin 31.7 PG (26-34); Mean Corpuscular Volume 93.1 fL (80-100); Monocytes Absolute Auto 500 /uL (0-900); Monocytes Percent Auto 3.6 % (3-14); Neutrophils Absolute Auto 12900 /uL (1500-7000); Neutrophils Percent Auto 90.5 % (50-75); Platelet Count 254 X10^3/uL (150-400); Red Blood Cell Count 3.77 X10^6/uL (4.0-5.2); Red Cell Distribution Width 12.9 % (11.6-14.8); White Blood Cell Count 14.2 X10^3/uL (4.5-11.0)
[2020-02-01 05:00] VITALS: BP 115/55; BP 130/69; BP 137/70; PULSE 84; PULSE 85; PULSE 86; RESP 18; TEMP 37; O2SAT 98
[2020-02-01 05:30] LABS: Add Manual Diff / Slide Review NO; Basophils Absolute Auto 0 /uL (0-100); Basophils Percent Auto 0.2 % (0-2); Eosinophils Absolute Auto 0 /uL (0-450); Hematocrit 34.8 % (36-46); Hemoglobin 11.6 g/dL (12.0-16.0); Lymphocytes Absolute Auto 1000 /uL (1100-4500); Lymphocytes Percent Auto 8.3 % (25-40); Mean Corpuscular HGB Conc 33.4 % (30-36); Mean Corpuscular Volume 92.8 fL (80-100); Monocytes Absolute Auto 800 /uL (0-900); Monocytes Percent Auto 6.5 % (3-14); Neutrophils Absolute Auto 10300 /uL (1500-7000); Platelet Count 246 X10^3/uL (150-400); Red Blood Cell Count 3.75 X10^6/uL (4.0-5.2); Red Cell Distribution Width 12.8 % (11.6-14.8); White Blood Cell Count 12.1 X10^3/uL (4.5-11.0)
[2020-02-01 05:44] LABS: Lactate (Lactic Acid) 1.3 mmol/L (0.7-2.1)
[2020-02-01 05:47] LABS: Alanine Aminotransferase 14 IU/L (<35); Albumin 2.6 g/dL (3.5-5.0); Albumin Globulin Ratio 1.3 (1.0-2.8); Alkaline Phosphatase 41 U/L (38-126); Aspartate Aminotransferase 34 IU/L (14-36); BUN Creatinine Ratio 25.7 (6-22); Bilirubin Total 0.5 mg/dL (0.2-1.3); Blood Urea Nitrogen 26 mg/dL (7-17); Calcium 8.3 mg/dL (8.4-10.2); Carbon Dioxide 22 mmol/L (22-32); Chloride 114 mmol/L (98-107); Estimated Glomerular Filt Rate 52.9 mL/min (>60); Glucose 102 mg/dL (80-110); HEMOLYSIS 23 (0-50); Magnesium 1.6 mg/dL (1.6-2.3); Sodium 138 mmol/L (137-145); Total Protein 4.6 g/dL (6.3-8.2)
[2020-02-01 05:51] LABS: Potassium 5.6 mmol/L (3.4-5.1)
[2020-02-01 05:59] LABS: Procalcitonin 3.67 ng/mL (<0.5)
[2020-02-01 07:40] VITALS: BP 137/60; PULSE 86; RESP 15; TEMP 36.8; O2SAT 95
--- NOTE | 2020-02-01 07:54 | PC.NURSE ---
Addendum entered by Alisha Hines R.N. 02/01/20 11:24: Patient had an accident in her brief, and she started crying. Cleaned up and castro catheter taken out. Just called her friend and hopefully he will be able to pick patient up soon. in room and they were arguing at one point. More calm now. Original Note: Assess- Patient is A&Ox3, she is overly sensitive to touch. Patient has 1+ edema to her lower extremities and her skin is tight. Touched her lower legs very lightly and she said it was painful. She is unsteady on her feet per Noc Shift RN, she has not been up to ambulate yet. is sleeping on couch in room. Patient has iv antibiotics around 1045.
[2020-02-01 09:19] VITALS: BP 114/53; BP 145/78; BP 156/90; PULSE 83; PULSE 89; PULSE 90
--- NOTE | 2020-02-01 09:48 | PM.CN ---
History of Present Illness Consult details Date Patient Seen: 02/01/20 Time Patient Seen: 09:48 Chief complaint: Near Syncope Narrative: 79-year-old female seen in consultation for GI bleed. She presented to the emergency room yesterday with a an episode of syncope at home in the emergency room she had an episode of bloody diarrhea bright red in nature. She was admitted to the hospital she was hemodynamically stable initial hematocrit 45 repeat this morning is 35. She has had no further bleeding episodes overnight. She has never had a colonoscopy. She has no history of ischemic colitis, diverticulitis or intestinal malignancy. She has no abdominal pain no nausea vomiting. Meds Home Medications and Allergies Home Medications Medication Instructions Recorded Confirmed Type CHOLECALCIFEROL (VITAMIN D3) 1,000 iu PO QDAY #0 07/15/10 01/31/20 History (Vitamin D3) MULTIVITAMIN (Multivitamin 1 cap PO EVERY DAY #0 07/28/10 01/31/20 History -) lisinopril 10 mg PO DAILY 01/31/20 01/31/20 History Allergies Allergy/AdvReac Type Severity Reaction Status Date / Time No Known Drug Allergies Allergy Verified 01/31/20 16:34 Exam Vital Signs (past 8 hours): - 02/01/20 05:00 02/01/20 07:40 02/01/20 09:19 Temperature 98.6 F 98.2 F Pulse Rate 84 86 Pulse Rate [Orthostatic Lying] 84 83 Pulse Rate [Orthostatic Sitting] 86 89 Pulse Rate [Orthostatic Standing] 85 90 Respiratory Rate 18 15 Blood Pressure 115/55 L 137/60 Blood Pressure [Orthostatic Lying] 115/55 L 114/53 L Blood Pressure [Orthostatic Sitting] 137/70 145/78 H Blood Pressure [Orthostatic Standing] 130/69 156/90 H Pulse Oximetry 98 95 Oxygen Delivery Method Room Air Oxygen Flow Rate 0 Narrative Exam Narrative: General-no acute distress, well nourished elderly woman HEENT-moist mucous membranes, no scleral icterus Neck-supple, no lymphadenopathy Chest- non labored respirations, clear to auscultation bilaterally Cardiac-regular rate no peripheral edema Abdomen-soft, nontender, non distended Extremities-warm, well perfused Neurological-alert and oriented, no focal deficits Objective Labs Result Diagrams: 02/01/20 05:01 02/01/20 05:01 Labs: Laboratory Results - last 24 hr 01/31/20 01/31/20 01/31/20 16:53 16:53 16:53 WBC 20.0 H RBC 4.83 Hgb 14.9 Hct 45.5 MCV 94.2 MCH 30.9 MCHC 32.8 RDW 13.1 Plt Count 321 Neut % (Auto) 81.6 H Lymph % (Auto) 10.6 L [place] % (Auto) 5.1 Eos % (Auto) 1.4 L Baso % (Auto) 1.3 Neut # (Auto) 36253 H Lymph # (Auto) 2100 [place] # (Auto) 1000 H Eos # (Auto) 300 Baso # (Auto) 300 H Sodium 137 Potassium 3.3 L Chloride 106 Carbon Dioxide 19 L BUN 26 H Creatinine 0.99 Estimated GFR 54.1 L BUN/Creatinine Ratio 26.3 H Glucose 160 H Lactate 4.0 H Calcium 10.0 Magnesium 1.6 Total Bilirubin 0.7 AST 36 ALT 18 Alkaline Phosphatase 74 Total Creatine Kinase 53 CK-MB (CK-2) TNP CK-MB (CK-2) Rel Index TNP Troponin I < 0.012 NT-Pro-B Natriuret Pep 249 Total Protein 5.8 L Albumin 3.5 Globulin 2.3 Albumin/Globulin Ratio 1.5 Procalcitonin Urine RBC Urine WBC Ur Squamous Epith Cells Urine Bacteria Ur Culture Indicated? COVID-19 PCR Blood Type Antibody Screen 01/31/20 01/31/20 01/31/20 16:58 18:00 19:00 WBC RBC Hgb Hct MCV MCH MCHC RDW Plt Count Neut % (Auto) Lymph % (Auto) [place] % (Auto) Eos % (Auto) Baso % (Auto) Neut # (Auto) Lymph # (Auto) [place] # (Auto) Eos # (Auto) Baso # (Auto) Sodium Potassium Chloride Carbon Dioxide BUN Creatinine Estimated GFR BUN/Creatinine Ratio Glucose Lactate 2.5 H Calcium Magnesium Total Bilirubin AST ALT Alkaline Phosphatase Total Creatine Kinase CK-MB (CK-2) CK-MB (CK-2) Rel Index Troponin I NT-Pro-B Natriuret Pep Total Protein Albumin Globulin Albumin/Globulin Ratio Procalcitonin < 0.05 Urine RBC 5-10/hpf H Urine WBC 0-1/hpf Ur Squamous Epith Cells 0-1 /hpf Urine Bacteria Occasional (0-1) Ur Culture Indicated? Cult not indicated COVID-19 PCR Blood Type Antibody Screen 01/31/20 01/31/20 01/31/20 19:15 19:46 19:46 WBC 21.7 H RBC 4.60 Hgb 14.2 Hct 42.8 MCV 93.2 MCH 30.9 MCHC 33.2 RDW 12.8 Plt Count 290 Neut % (Auto) 82.8 H Lymph % (Auto) 5.4 L [place] % (Auto) 11.1 Eos % (Auto) 0.2 L Baso % (Auto) 0.5 Neut # (Auto) 67941 H Lymph # (Auto) 1200 [place] # (Auto) 2400 H Eos # (Auto) 0 Baso # (Auto) 100 Sodium Potassium Chloride Carbon Dioxide BUN Creatinine Estimated GFR BUN/Creatinine Ratio Glucose Lactate Calcium Magnesium Total Bilirubin AST ALT Alkaline Phosphatase Total Creatine Kinase CK-MB (CK-2) CK-MB (CK-2) Rel Index Troponin I NT-Pro-B Natriuret Pep Total Protein Albumin Globulin Albumin/Globulin Ratio Procalcitonin Urine RBC Urine WBC Ur Squamous Epith Cells Urine Bacteria Ur Culture Indicated? COVID-19 PCR Negative Blood Type O Positive Antibody Screen Negative 02/01/20 02/01/20 02/01/20 02:01 05:01 05:01 WBC 14.2 H 12.1 H RBC 3.77 L 3.75 L Hgb 12.0 11.6 L Hct 35.1 L 34.8 L MCV 93.1 92.8 MCH 31.7 31.0 MCHC 34.1 33.4 RDW 12.9 12.8 Plt Count 254 246 Neut % (Auto) 90.5 H 85.0 H Lymph % (Auto) 5.5 L 8.3 L [place] % (Auto) 3.6 6.5 Eos % (Auto) 0.1 L 0.0 L Baso % (Auto) 0.3 0.2 Neut # (Auto) 68439 H 00010 H Lymph # (Auto) 800 L 1000 L [place] # (Auto) 500 800 Eos # (Auto) 0 0 Baso # (Auto) 0 0 Sodium 138 Potassium 5.6 H D Chloride 114 H Carbon Dioxide 22 BUN 26 H Creatinine 1.01 Estimated GFR 52.9 L BUN/Creatinine Ratio 25.7 H Glucose 102 Lactate Calcium 8.3 L Magnesium 1.6 Total Bilirubin 0.5 AST 34 ALT 14 Alkaline Phosphatase 41 Total Creatine Kinase CK-MB (CK-2) CK-MB (CK-2) Rel Index Troponin I NT-Pro-B Natriuret Pep Total Protein 4.6 L Albumin 2.6 L Globulin 2.0 Albumin/Globulin Ratio 1.3 Procalcitonin Urine RBC Urine WBC Ur Squamous Epith Cells Urine Bacteria Ur Culture Indicated? COVID-19 PCR Blood Type Antibody Screen 02/01/20 02/01/20 05:01 05:01 WBC RBC Hgb Hct MCV MCH MCHC RDW Plt Count Neut % (Auto) Lymph % (Auto) [place] % (Auto) Eos % (Auto) Baso % (Auto) Neut # (Auto) Lymph # (Auto) [place] # (Auto) Eos # (Auto) Baso # (Auto) Sodium Potassium Chloride Carbon Dioxide BUN Creatinine Estimated GFR BUN/Creatinine Ratio Glucose Lactate 1.3 Calcium Magnesium Total Bilirubin AST ALT Alkaline Phosphatase Total Creatine Kinase CK-MB (CK-2) CK-MB (CK-2) Rel Index Troponin I NT-Pro-B Natriuret Pep Total Protein Albumin Globulin Albumin/Globulin Ratio Procalcitonin 3.67 H Urine RBC Urine WBC Ur Squamous Epith Cells Urine Bacteria Ur Culture Indicated? COVID-19 PCR Blood Type Antibody Screen Assessment & Plan Assessment and plan (1) Acute GI bleeding: Status: Acute Assessment & Plan narrative: 79-year-old woman admitted to the hospital for a lower GI bleed. She is hemodynamically stable hematocrit today is 35 from 45 on admission She has had no further bleeding over the past 12 hours. I discussed with her that my recommendation is that she proceed with a diagnostic possibly therapeutic colonoscopy today. She says that because she is having no further bleeding she does not want to go forward with colonoscopy at this time. I told her that there is a possibility that she will have further bleeding and we had not yet identified the cause of her GI bleed such as malignancy, ischemia, diverticulosis. However despite this discussion she does not wish to proceed with colonoscopy in the hospital setting. She said that she may consider colonoscopy as an outpatient. Please call with questions if patient is amenable colonoscopy can be performed as an outpatient.
[2020-02-01 11:41] LABS: Clostridium Difficile Tox PCR Negative for C. diff
--- NOTE | 2020-02-01 14:42 | CM.IDA ---
Initial DCP Assessment Note Patient is a 79 yo female,resident of [place]. Patient presents after near syncopal episode and bloody stool, recently diagnosed w/hypertension by PCP PCP: Not listed Payer: [employer] MAYNARD Reviewed chart. Met w/patient and her this morning during multidisciplinary rounds. Patient has decided with Dr Noyola to schedule colonoscopy as an outpatient. Patient discharged today, no needs identified from this [facility] [employer]. Patient alerts staff this AM that transportation could be an issue, patient arrived via EMS and spouse Valdo, who is blind, joined her in the ambulance. Patient inevitably was able to secure a friend to pick she and patient up today. P: DC home via friend's private auto, close outpatient f/u STEPHANIE Fofana
--- NOTE | 2020-02-01 16:49 | PM.DS.1 ---
History of Present Illness History of Present Illness Date Patient Seen: 02/01/20 Chief complaint: Near Syncope Narrative: Rebecca Saxena is a very pleasant 79-year-old female with hypertension as her only chronic medical condition presented to the emergency department with syncope and then had a bloody diarrhea episode in the emergency department. She was in the kitchen fixing lunch today when she got dizzy and lightheaded and had to ask her blind to walker over to the couch so that she could rest. She had vomiting nausea and diarrhea and has been cold since being in the here in the hospital. She does complain of being dizzy. She had diarrhea today but was not able to tell me if she had blood in it however when she use the bedpan in the ED was bright red blood per the ED provider. Dr. Noyola was consulted and recommended that the patient not receive antibiotics and that he would see her in the morning. She continues to complain of being cold so has never had a fever chills or sweats. She denies shortness of breath or chest pain, dysuria, or constipation. She does have abdominal crampiness associated with the diarrhea. She complains of lower extremity edema that she tries to sit with her legs raised. She states that only helps for short while before they swell up again after standing for any period of time. She did state over the past several months, she had diarrhea, vomiting and lightheadedness, but that these episodes only lasted for a minute and subsided. 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 The patient is the primary caregiver for her who has a catheter bag and is in the room with her tonight. A patient goes to [facility] and was diagnosed 2 months ago with hypertension, she was started on lisinopril 10 mg at that time. She also has a diagnosis of polymyalgia rheumatica and was initially started on methotrexate which apparently did not work. That was discontinued and she was put on a prednisone which she completed a tapor she thinks was about a month and half ago. She has never had a colonoscopy despite her mother apparently passing of diverticulitis. She had a head CT, head CTA, chest abdomen and pelvis CTA, all of which were negative for any acute intracranial or intra-abdominal process respectively. CTA of the abdomen and pelvis indicated trace free fluid within the pelvis. No significant bowel distension. Stomach is nondistended. There is thickening of multiple small bowel loops throughout the central and left hemiabdomen predominantly, as well as the descending colon and rectum. There is fluid within the right colon. She was administered ceftriaxone 2 grams in the ED. While she was in the emergency department she was very hypotensive and received a total of 3 L normal saline boluses. As mentioned before, she reportedly had a diarrheal episode with silviano red blood in it. Patient's temp was 96.6?, blood pressure 144/69, heart rate 90, respiratory rate 18, oxygen saturation of 96% on room air, she weighs 79.3 kg with a BMI of 30. WBC is 21.7, RBC 4.60, hemoglobin 14.2, hematocrit 42.8, platelet count 290, she does have a significant left shift, sodium was 137, potassium 3.3, chloride 106, bicarb 19, BUN 26, creatinine 0.99, estimated GFR 54.1, glucose 160, lactate initially was 4.0 decreased to 2.5, liver enzymes within normal limits, troponin was 0.012, proBNP was 249, COVID-19 was negative. Discharge Providers Provider Date of admission: 01/31/20 20:06 Discharge Date: 02/01/20 Consults: 01/31/20 19:11 Consult to General Surgery Stat Comment: Consulting Provider: Tenzin Noyola Reason for consultation: gi bleed Has provider been notified: Yes 01/31/20 20:33 Consult to Physician Routine Comment: Consulting Provider: Tenzin Noyola Reason for consultation: Lower GI bleed Has provider been notified: Yes Discharge provider: Marce Thompson MD Summary Hospital Course Discharge Diagnosis: 1. Near syncope 2. Lower GI bleed 3. Hypertension Hospital Course: Patient was admitted to the hospital following an episode of bright red blood per rectum. She was seen in consultation by Dr. Noyola. Patient was offered colonoscopy which she declined. She reported that she has never had a colonoscopy. She also indicated that she wanted to have a complete bowel prep to ensure that the study would be remarkable. The patient had no further rectal bleeding. She had no further syncope. Orthostatic vital signs were good and she had no drop in her blood pressure. The patient's diet was advanced. She was deemed appropriate for discharge and arrangements were made for her to be discharged home. The patient will follow-up with her primary care provider for a referral to Dr. Noyola for an outpatient colonoscopy. Patient was initiated on IV antibiotics on admission. [place] [id number] which improved. There was no further evidence to suggest infection and antibiotics were discontinued at the time of discharge. Status at Discharge Cognitive/behavioral status at discharge: oriented Functional status at discharge: independent ambulation Overall status at discharge: patient is back to baseline Time Spent with Patient Time spent: Less than 30 minutes Exam Vital Signs (past 8 hours): - 02/01/20 09:19 Pulse Rate [Orthostatic Lying] 83 Pulse Rate [Orthostatic Sitting] 89 Pulse Rate [Orthostatic Standing] 90 Blood Pressure [Orthostatic Lying] 114/53 L Blood Pressure [Orthostatic Sitting] 145/78 H Blood Pressure [Orthostatic Standing] 156/90 H Oxygen Delivery Method Room Air Oxygen Flow Rate 0 Narrative Exam Narrative: Pleasant female in no acute distress Lungs: Clear to auscultation Cardiac exam: Regular rate and rhythm normal S1-S2 Abdomen: Soft nontender nondistended Extremities: No edema Objective Labs Result Diagrams: 02/01/20 05:01 02/01/20 05:01 Labs: Laboratory Results - last 24 hr 01/31/20 01/31/20 01/31/20 10:40 16:53 16:53 WBC 20.0 H RBC 4.83 Hgb 14.9 Hct 45.5 MCV 94.2 MCH 30.9 MCHC 32.8 RDW 13.1 Plt Count 321 Neut % (Auto) 81.6 H Lymph % (Auto) 10.6 L [place] % (Auto) 5.1 Eos % (Auto) 1.4 L Baso % (Auto) 1.3 Neut # (Auto) 73004 H Lymph # (Auto) 2100 [place] # (Auto) 1000 H Eos # (Auto) 300 Baso # (Auto) 300 H Sodium 137 Potassium 3.3 L Chloride 106 Carbon Dioxide 19 L BUN 26 H Creatinine 0.99 Estimated GFR 54.1 L BUN/Creatinine Ratio 26.3 H Glucose 160 H Lactate Calcium 10.0 Magnesium 1.6 Total Bilirubin 0.7 AST 36 ALT 18 Alkaline Phosphatase 74 Total Creatine Kinase 53 CK-MB (CK-2) TNP CK-MB (CK-2) Rel Index TNP Troponin I < 0.012 NT-Pro-B Natriuret Pep 249 Total Protein 5.8 L Albumin 3.5 Globulin 2.3 Albumin/Globulin Ratio 1.5 Procalcitonin Urine RBC Urine WBC Ur Squamous Epith Cells Urine Bacteria Ur Culture Indicated? C. difficile Tox (PCR) Negative for c. diff COVID- PCR Blood Type Antibody Screen 01/31/20 01/31/20 01/31/20 16:53 16:58 18:00 WBC RBC Hgb Hct MCV MCH MCHC RDW Plt Count Neut % (Auto) Lymph % (Auto) [place] % (Auto) Eos % (Auto) Baso % (Auto) Neut # (Auto) Lymph # (Auto) [place] # (Auto) Eos # (Auto) Baso # (Auto) Sodium Potassium Chloride Carbon Dioxide BUN Creatinine Estimated GFR BUN/Creatinine Ratio Glucose Lactate 4.0 H Calcium Magnesium Total Bilirubin AST ALT Alkaline Phosphatase Total Creatine Kinase CK-MB (CK-2) CK-MB (CK-2) Rel Index Troponin I NT-Pro-B Natriuret Pep Total Protein Albumin Globulin Albumin/Globulin Ratio Procalcitonin < 0.05 Urine RBC 5-10/hpf H Urine WBC 0-1/hpf Ur Squamous Epith Cells 0-1 /hpf Urine Bacteria Occasional (0-1) Ur Culture Indicated? Cult not indicated C. difficile Tox (PCR) COVID-19 PCR Blood Type Antibody Screen 01/31/20 01/31/20 01/31/20 19:00 19:15 19:46 WBC RBC Hgb Hct MCV MCH MCHC RDW Plt Count Neut % (Auto) Lymph % (Auto) [place] % (Auto) Eos % (Auto) Baso % (Auto) Neut # (Auto) Lymph # (Auto) [place] # (Auto) Eos # (Auto) Baso # (Auto) Sodium Potassium Chloride Carbon Dioxide BUN Creatinine Estimated GFR BUN/Creatinine Ratio Glucose Lactate 2.5 H Calcium Magnesium Total Bilirubin AST ALT Alkaline Phosphatase Total Creatine Kinase CK-MB (CK-2) CK-MB (CK-2) Rel Index Troponin I NT-Pro-B Natriuret Pep Total Protein Albumin Globulin Albumin/Globulin Ratio Procalcitonin Urine RBC Urine WBC Ur Squamous Epith Cells Urine Bacteria Ur Culture Indicated? C. difficile Tox (PCR) COVID-19 PCR Negative Blood Type O Positive Antibody Screen Negative 01/31/20 02/01/20 02/01/20 19:46 02:01 05:01 WBC 21.7 H 14.2 H 12.1 H RBC 4.60 3.77 L 3.75 L Hgb 14.2 12.0 11.6 L Hct 42.8 35.1 L 34.8 L MCV 93.2 93.1 92.8 MCH 30.9 31.7 31.0 MCHC 33.2 34.1 33.4 RDW 12.8 12.9 12.8 Plt Count 290 254 246 Neut % (Auto) 82.8 H 90.5 H 85.0 H Lymph % (Auto) 5.4 L 5.5 L 8.3 L [place] % (Auto) 11.1 3.6 6.5 Eos % (Auto) 0.2 L 0.1 L 0.0 L Baso % (Auto) 0.5 0.3 0.2 Neut # (Auto) 25606 H 87807 H 47625 H Lymph # (Auto) 1200 800 L 1000 L [place] # (Auto) 2400 H 500 800 Eos # (Auto) 0 0 0 Baso # (Auto) 100 0 0 Sodium Potassium Chloride Carbon Dioxide BUN Creatinine Estimated GFR BUN/Creatinine Ratio Glucose Lactate Calcium Magnesium Total Bilirubin AST ALT Alkaline Phosphatase Total Creatine Kinase CK-MB (CK-2) CK-MB (CK-2) Rel Index Troponin I NT-Pro-B Natriuret Pep Total Protein Albumin Globulin Albumin/Globulin Ratio Procalcitonin Urine RBC Urine WBC Ur Squamous Epith Cells Urine Bacteria Ur Culture Indicated? C. difficile Tox (PCR) COVID-19 PCR Blood Type Antibody Screen 02/01/20 02/01/20 02/01/20 05:01 05:01 05:01 WBC RBC Hgb Hct MCV MCH MCHC RDW Plt Count Neut % (Auto) Lymph % (Auto) [place] % (Auto) Eos % (Auto) Baso % (Auto) Neut # (Auto) Lymph # (Auto) [place] # (Auto) Eos # (Auto) Baso # (Auto) Sodium 138 Potassium 5.6 H D Chloride 114 H Carbon Dioxide 22 BUN 26 H Creatinine 1.01 Estimated GFR 52.9 L BUN/Creatinine Ratio 25.7 H Glucose 102 Lactate 1.3 Calcium 8.3 L Magnesium 1.6 Total Bilirubin 0.5 AST 34 ALT 14 Alkaline Phosphatase 41 Total Creatine Kinase CK-MB (CK-2) CK-MB (CK-2) Rel Index Troponin I NT-Pro-B Natriuret Pep Total Protein 4.6 L Albumin 2.6 L Globulin 2.0 Albumin/Globulin Ratio 1.3 Procalcitonin 3.67 H Urine RBC Urine WBC Ur Squamous Epith Cells Urine Bacteria Ur Culture Indicated? C. difficile Tox (PCR) COVID-19 PCR Blood Type Antibody Screen Discharge Assessment & Plan Assessment and Plan Assessment: 1. Near syncope 2. Lower GI bleed 3. Hypertension Plan of Treatment: Discharge home Follow-up with PCP Outpatient colonoscopy Discharge Plan Discharge Plan Patient Disposition: Home Discharge orders & Medications Prescriptions: Continued CHOLECALCIFEROL (VITAMIN D3) (Vitamin D3) 1,000 iu PO QDAY Qty: 0 RF: 0 MULTIVITAMIN (Multivitamin -) 1 cap PO EVERY DAY Qty: 0 RF: 0 lisinopril 10 mg tablet 10 mg PO DAILY RF: 0 Discharge Health Status Multidrug resistant organism: No MDRO Diet/Activity/Treatments Diet: Diet as Tolerated Visit Report/Discharge Packet Instructions: Gastrointestinal Bleeding Visit Report Forms: Patient Portal/API, Stroke Signs & Symptoms Discharge Data Attending Provider: Jaida Adams Admit Date/Time: 01/31/20 20:06 Discharges patient from system. Discharge Date/Time: 02/01/20 12:16 Quality VTE Deep Vein Thrombosis/Pulmonary Embolism Present on Admission: No
== END 2020-02-01 12:16 | disposition home or self-care (01) ==
LOC: ED 19:11 → AC 20:19
PROVIDERS: Emergency Medicine; Admitting Provider Nurse Practitioner Family; Emergency Provider Emergency Medicine; Referring Provider Emergency Medicine; Visit Provider Nurse Practitioner Family
DX: K62.5 Hemorrhage of anus and rectum (principal); R55 Syncope and collapse; Z11.59 Encounter for screening for other viral diseases; I10 Essential (primary) hypertension; M35.3 Polymyalgia rheumatica
CPT/HCPCS: 36415; 70450; 70496; 70498; 71045; 71275; 74174; 80053; 81003; 81015; 82272; 82550; 83605; 83735; 83880; 84145; 84484; 85025; 86850; 86900; 86901; 87040; 87045; 87493; 87635; 87899; 93005; 96361; 96365; 96367; 96368; 96375; 99284; 99285; 99291; 99292; G0378; J0696; J2405; J2543; J3480; Q9967

== ENCOUNTER → 2020-02-19 13:12 | Outpatient (CLI) | payer MEDICARE, SELFPAY ==
[2020-02-21 17:21] LABS: COVID19 Sendout Not Detected (Not Detect)
== END ==
PROVIDERS: Visit Provider Nurse Practitioner
DX: Z11.59 Encounter for screening for other viral diseases (principal)
CPT/HCPCS: 87635

== ENCOUNTER 2020-02-22 14:33 | Day surgery (SDC) | payer MEDICARE, MEDICAID, SELFPAY ==
[2020-02-22] VITALS (7 sets, daily range): BP systolic 96–119; BP diastolic 67–78; PULSE 94–101; RESP 13–22; TEMP 36.2–37.2; O2SAT 94–98; BMI 27.3
[2020-02-22] MEDS: LACTATED RINGERS 1,000 ML 200 ML IV (15:22)
--- NOTE | 2020-02-22 16:22 | PM.PREOP ---
Pre-operative Note COVID-19 COVID-19 status: Negative Interval Note History & Physical reviewed/Exam performed by Physician: Yes Changes to H&P: No ASA Class (for procedural sedation): II
[2020-02-22] MEDS: MIDAZOLAM 5 MG/5 ML VIAL IV (16:37)
[2020-02-22] MEDS: fentaNYL 250 MCG/5 ML INJ IV (16:37)
--- NOTE | 2020-02-22 16:46 | PM.OP.ENDO ---
Operative Date/Time/Diagnoses Date of procedure: 02/22/20 Time of procedure: 16:46 Pre-op diagnosis: Bright red blood per rectum Post-op diagnosis: same Procedure & Clinicians Study performed: Colonoscopy Same procedure as scheduled: Yes Indications: 79-year-old woman who is admitted hospital for bright red blood rectum never had a previous colonoscopy Surgeon: Tenzin Noyola Procedure Notes SCOAP/Timeout: Performed Procedure in detail: Patient placed in left lateral recumbent position. Time out was performed. Procedural sedation was administered with Versed and Fentanyl. Examination began with a thorough inspection of the perianal area there was no evidence of fissures, fistulae, external hemorrhoids or cutaneous malignancy. The colonoscopy scope was then placed into the rectum the the lumen was insufflated with air. The scope was carefully advanced forward. Ultimately the cecum was intubated and confirmed by identification of the ileocecal valve, the appendiceal orifice and the confluence of the taenia. The scope was then slowly withdrawn examining colon thoroughly in all directions. In the rectum the rectal columns were identified and retroflexion of the scope was performed for inspection of the distal rectum and anal canal. The colonoscopy was notable for the followin. Quality of the preparation-excellent 2. No masses or polyps 3. Grade 2 internal hemorrhoids Scope withdrawal time: 6 Sedation minutes: 20 Findings: internal hemorrhoids Specimen(s): none sent Complications: none Impression: Normal colonoscopy Post-procedure Disposition: same day surgery
--- NOTE | 2020-02-26 13:16 | PM.HP.1 ---
History of Present Illness History of Present Illness Date Patient Seen: 02/22/20 Time Patient Seen: 13:16 Chief complaint: SDC Narrative: 79-year-old female seen in consultation for GI bleed. She presented to the emergency room yesterday with a an episode of syncope at home in the emergency room she had an episode of bloody diarrhea bright red in nature. She was admitted to the hospital she was hemodynamically stable initial hematocrit 45 repeat this morning is 35. She has had no further bleeding episodes overnight. She has never had a colonoscopy. She has no history of ischemic colitis, diverticulitis or intestinal malignancy. She has no abdominal pain no nausea vomiting Patient History Medical History Hypertension (Chronic) Surgical History History of right hip replacement (Acute) Family & Social History Family History Mother Diverticulosis of colon Father Abdominal aortic aneurysm Social History: household members spouse lives independently Yes caregiver/support person Yes Tobacco & Substance use: Smoking Status Never smoker alcohol intake current alcohol intake frequency a few times a week Substance Use Type does not use Meds Home Medications and Allergies Home Medications Medication Instructions Recorded Confirmed Type cholecalciferol (vitamin D3) 25 mcg PO DAILY #0 07/15/10 02/22/20 History [Vitamin D3] Multivitamin 50 Plus 1 tab PO DAILY #0 07/28/10 02/22/20 History lisinopril 10 mg PO DAILY 01/31/20 02/22/20 History Probiotic 3,000 mmu cells PO DAILY 02/22/20 02/22/20 History omega 1-wed-vuh-fish oil [Fish Oil] 1 cap PO DAILY 02/22/20 02/22/20 History pantoprazole [Protonix] 40 mg PO DAILY 02/22/20 02/22/20 History Allergies Allergy/AdvReac Type Severity Reaction Status Date / Time Sulfa (Sulfonamide Allergy unknown Verified 02/22/20 15:04 Antibiotics) Review of Systems Review of Systems ROS: Yes All systems reviewed with the patient and are negative except as otherwise documented Exam Vital Signs (past 8 hours): Oxygen Delivery Method Room Air Narrative Exam Narrative: General-no acute distress, well nourished elderly woman HEENT-moist mucous membranes, no scleral icterus Neck-supple, no lymphadenopathy Chest- non labored respirations, clear to auscultation bilaterally Cardiac-regular rate no peripheral edema Abdomen-soft, nontender, non distended Extremities-warm, well perfused Neurological-alert and oriented, no focal deficits Assessment & Plan Assessment & Plan narrative: The patient requires colorectal screening and colonoscopy is recommended. Technical details were discussed. Risks, benefits, alternatives explained. Risks including but not limited to myocardial infarction, aspiration, bleeding, pain, missed lesion, incomplete examination, need for further radiographic studies, colonic perforation, and need for major abdominal surgery were discussed. All questions were answered to their satisfaction, and they are in agreement with this plan.
== END 2020-02-22 17:30 | disposition home or self-care (01) ==
PROVIDERS: PCP Student in an Organized Health Care Education/Training Program; Referring Provider Surgery; Visit Provider Surgery
PROC: 0DJD8ZZ Inspection of Lower Intestinal Tract, Via Natural or Artificial Opening Endoscopic (ICD-10-PCS; CPT 45378; principal; 2020-02-22 16:00)
DX: K62.5 Hemorrhage of anus and rectum (principal); K64.0 First degree hemorrhoids; I10 Essential (primary) hypertension
CPT/HCPCS: 45378; 99152; J2250; J3010

== ENCOUNTER → 2020-07-05 10:12 | Outpatient (CLI) | payer OTHER, MEDICAID, SELFPAY ==
[2020-07-05 12:13] LABS: Hematocrit 37.6 % (36-46); Hemoglobin 12.1 g/dL (12.0-16.0); Mean Corpuscular HGB Conc 32.2 % (30-36); Mean Corpuscular Volume 93.4 fL (80-100); Platelet Count 287 X10^3/uL (150-400); Red Blood Cell Count 4.03 X10^6/uL (4.0-5.2); Red Cell Distribution Width 13.5 % (11.6-14.8); White Blood Cell Count 6.5 X10^3/uL (4.5-11.0)
[2020-07-05 12:37] LABS: Alanine Aminotransferase 14 IU/L (<35); Albumin 3.6 g/dL (3.5-5.0); Albumin Globulin Ratio 1.6 (1.0-2.8); Alkaline Phosphatase 74 U/L (38-126); Aspartate Aminotransferase 22 IU/L (14-36); BUN Creatinine Ratio 18.6 (6-22); Bilirubin Total 0.4 mg/dL (0.2-1.3); Blood Urea Nitrogen 13 mg/dL (7-17); Calcium 9.8 mg/dL (8.4-10.2); Carbon Dioxide 33 mmol/L (22-32); Chloride 104 mmol/L (98-107); Cholesterol 228 mg/dL (140-199); Estimated Glomerular Filt Rate > 60.0 mL/min (>60); Globulin 2.2 g/dL (1.7-4.1); Glucose 87 mg/dL (80-110); HDL Cholesterol 64 mg/dL (40-60); HEMOLYSIS < 15 (0-50); LDL Cholesterol Calculated 137 mg/dL (<100); Potassium 4.1 mmol/L (3.4-5.1); Sodium 137 mmol/L (137-145); Total Protein 5.8 g/dL (6.3-8.2); Triglycerides 137 mg/dL (35-150)
== END ==
PROVIDERS: PCP Student in an Organized Health Care Education/Training Program; Referring Provider Student in an Organized Health Care Education/Training Program; Visit Provider Student in an Organized Health Care Education/Training Program
DX: I10 Essential (primary) hypertension (principal); E78.2 Mixed hyperlipidemia
CPT/HCPCS: 36415; 80053; 80061; 85027

== ENCOUNTER → 2020-08-19 14:08 | Outpatient (CLI) | payer MEDICARE, SELFPAY ==
[2020-08-19] MEDS: COVID-19 VACC, Ad26(JANSSEN)/PF 0.5 ML IM (14:24)
== END ==
PROVIDERS: PCP Student in an Organized Health Care Education/Training Program; Visit Provider Internal Medicine
DX: Z23 Encounter for immunization (principal)
CPT/HCPCS: 0031A; 91303

== ENCOUNTER 2020-10-23 13:46 | Emergency (ER) | payer OTHER, MEDICAID, SELFPAY ==
[2020-10-23 14:29] VITALS: BP 146/68; PULSE 92; RESP 20; TEMP 36.8; O2SAT 98; BMI 28.8
--- NOTE | 2020-10-23 14:34 | DI.US.S_ITS ---
PROCEDURE: US PERIPH VENOUS LOW EXTREM LT INDICATIONS: POST-OP EDEMA TECHNIQUE: Real-time imaging, as well as color and pulse Doppler interrogation, were performed of the lower extremity deep veins from the inguinal ligament to the popliteal fossa. COMPARISON: None. FINDINGS: The common femoral, femoral and popliteal veins are normally compressible, and free of intraluminal thrombus. Color and pulse Doppler demonstrate normal phasic intraluminal flow. There is normal augmentation response to distal compression maneuver. IMPRESSION: No sonographic evidence of DVT. Dictated by: Jair Curran M.D. on 10/23/2020 at 15:05 Approved by: Jair Curran M.D. on 10/23/2020 at 15:07
--- NOTE | 2020-10-23 15:24 | ED_ITS ---
HPI - Extremity Problem General Chief complaint: Extremity Problem,Nontraumatic Stated complaint: 2wk post op, Hip Replacement, blood clot concern Time Seen by Provider: 10/23/20 14:48 Source: patient Mode of arrival: Ambulatory Limitations: no limitations History of Present Illness HPI Narrative: Patient is a 80-year-old female who 2 weeks ago underwent a left total hip replacement. Since that time she has had swelling and her left lower extremity. She had a follow-up yesterday and the provider that she saw ordered an outpatient ultrasound. She stated that the facility where the ultrasound was ordered would only give her 1 hour notice to come and get it done and she was not going to be able to get that completed so she came to this emergency department for evaluation. She denies any chest pain or shortness of breath. Related Data Home Medications Medication Instructions Recorded Confirmed cholecalciferol (vitamin D3) 25 mcg PO DAILY #0 07/15/10 02/22/20 [Vitamin D3] Multivitamin 50 Plus 1 tab PO DAILY #0 07/28/10 02/22/20 lisinopril 10 mg PO DAILY 01/31/20 02/22/20 Probiotic 3,000 mmu cells PO DAILY 02/22/20 02/22/20 omega 8-xuc-dmg-fish oil [Fish Oil] 1 cap PO DAILY 02/22/20 02/22/20 pantoprazole [Protonix] 40 mg PO DAILY 02/22/20 02/22/20 Allergies Allergy/AdvReac Type Severity Reaction Status Date / Time Sulfa (Sulfonamide Allergy unknown Verified 10/23/20 14:29 Antibiotics) Review of Systems Constitutional Constitutional: Denies fever(s) Cardiovascular Cardiovascular: Denies chest pain and Denies dyspnea Respiratory Respiratory: Denies dyspnea Musculoskeletal Comments: Left lower extremity swelling Integumentary/Breasts Skin/Breast: Reports system reviewed and no additional complaints, except as documented Neurologic Neurologic: Reports system reviewed and no additional complaints, except as documented Allergic/Immunologic Allergic/Immunologic: Reports system reviewed and no additional complaints, except as documented Patient History Medical History (Updated 10/23/20 @ 15:27 by Bob Leone DO) Hypertension Surgical History History of right hip replacement Family History Mother Diverticulosis of colon Father Abdominal aortic aneurysm Social History marital status: household members: spouse lives independently: Yes caregiver/support person: Yes occupational status: previously employed Previous occupational history: She and her are a [email or web address] leisure activities: music Smoking Status: Never smoker alcohol intake: current Smoking Status: Never smoker alcohol intake frequency: a few times a week Substance Use Type: does not use Exam Initial Vital Signs Initial Vital Signs: Vital Signs Temperature 98.2 F 10/23/20 14:29 Pulse Rate 92 H 10/23/20 14:29 Respiratory Rate 20 10/23/20 14:29 Blood Pressure 146/68 H 10/23/20 14:29 Pulse Oximetry 98 10/23/20 14:29 Const General: cooperative and healthy appearing Resp Effort & Inspection: normal respiratory effort Skin Other: Scar left hip consistent with stated surgery looks well without signs of infection Neuro Sensory Exam: no sensory deficits noted Extrem Other: Patient with edema left lower extremity from the toes to just above knee. Psych Appearance: grossly normal and well kempt Course Orders Ordered: ED Orders 10/23/20 14:34 US periph venous low extrem lt Stat Vital Signs Vital signs: Vital Signs - 8 hr 10/23/20 14:29 Temperature 98.2 F Pulse Rate 92 H Respiratory Rate 20 Blood Pressure 146/68 H Pulse Oximetry 98 MDM - Extremity (Nontraumatic) Imaging Data US - DVT: Radiologist's Impression: [address] [id number] ReportSigned Patient: Rebecca Lopez DMR#: [id number]: [id number]:[id number]/Sex: 80 / FDate of Service: 10/23/20Loc: EDAccession Number: [id number] Procedure: US periph venous low extrem lt Ordering Provider: Carito Man D.O. PROCEDURE: US PERIPH VENOUS LOW EXTREM LT INDICATIONS: POST-OP EDEMA TECHNIQUE: Real-time imaging, as well as color and pulse Doppler interrogation, were performed of the lower extremity deep veins from the inguinal ligament to the popliteal fossa. COMPARISON: None. FINDINGS: The common femoral, femoral and popliteal veins are normally compressible, and free of intraluminal thrombus. Color and pulse Doppler demonstrate normal phasic intraluminal flow. There is normal augmentation response to distal compression maneuver. IMPRESSION: No sonographic evidence of DVT. Dictated by: Jair Curran M.D. on 10/23/2020 at 15:05 Approved by: Jair Curran M.D. on 10/23/2020 at 15:07 [facility] Narrative Medical decision making narrative: No chest pain or shortness of breath. The surgical incisions look well. The left lower extremity DVT ultrasound is negative. I suspect that the swelling is related to the surgery. We did discuss things she could try at home to decrease the swelling and she was informed that she needs to keep all the postoperative instructions. She expressed understanding and agreement. Discharge Plan Departure Patient Disposition: Home Clinical Impression: Lower extremity edema Instructions: DI for Peripheral Edema-Unilateral Activity Restrictions/Additional Instructions: Recommend that you continue all of the postoperative instructions given to you by the orthopedic surgeon. Use the Agustín bandage as needed. Contact your primary provider for a follow-up. Return to the emergency department for any new or worsening symptoms Prescriptions: No Action cholecalciferol (vitamin D3) [Vitamin D3] 25 mcg (1,000 unit) Capsule 25 mcg PO DAILY Qty: 0 RF: 0 Multivitamin 50 Plus Tablet 1 tab PO DAILY Qty: 0 RF: 0 lisinopril 10 mg tablet 10 mg PO DAILY RF: 0 pantoprazole [Protonix] 40 mg Tablet,Delayed Release (Dr/Ec) 40 mg PO DAILY RF: 0 omega 0-qud-blo-fish oil [Fish Oil] 1,000 mg (120 mg-180 mg) Capsule 1 cap PO DAILY RF: 0 Probiotic 3 billion cell Capsule 3,000 mmu cells PO DAILY RF: 0 Referrals: Rebekah Garrett PA-C [Primary Care Provider] -
== END 2020-10-23 15:50 | disposition home or self-care (01) ==
PROVIDERS: Emergency Provider Emergency Medicine; PCP Student in an Organized Health Care Education/Training Program
DX: Z98.890 Other specified postprocedural states (principal); R60.0 Localized edema
CPT/HCPCS: 93971; 99283

== ENCOUNTER 2021-01-02 00:04 | Emergency (ER) | payer OTHER, MEDICAID, SELFPAY ==
[2021-01-02] VITALS (49 sets, daily range): BP systolic 94–172; BP diastolic 50–98; PULSE 85–107; RESP 15–29; TEMP 36.6; O2SAT 88–100; BMI 27.4
--- NOTE | 2021-01-02 01:10 | DI.CT.S_ITS ---
PROCEDURE: CT HEAD/BRAIN WO CON INDICATIONS: Altered mental status TECHNIQUE: Noncontrast 4.5 mm thick angled axial sections acquired from the foramen magnum to the vertex, with coronal and sagittal reformats. For radiation dose reduction, the following was used: automated exposure control, adjustment of mA and/or kV according to patient size. COMPARISON: [facility], CT, CT ANGIO HEAD AND NECK, 01/31/2020, 17:11. [facility], CT, CT HEAD/BRAIN WO CON, 01/31/2020, 16:34. FINDINGS: Image quality: Excellent. CSF spaces: Basal cisterns are patent. No extra-axial fluid collections. The ventricles are symmetric in size and shape. Brain: Hypodensity noted in the right temporal and occipital lobes compatible with subacute infarct. Hypodensity noted in the anterior aspect of the left temporal lobe compatible with subacute infarct. 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 No intracranial bleeds or masses. There is cerebral volume loss for age, with resultant ventricular and sulcal prominence. There are periventricular and deep white matter chronic small vessel ischemic changes. There is intracranial internal carotid artery atherosclerosis. Skull and face: Calvarium and visualized facial bones appear intact, without suspicious lesions. Sinuses: Visualized sinuses and mastoids are clear. IMPRESSION: 1. Subacute infarcts involving the temporal lobes bilaterally and the right occipital lobe. 2. No intracranial hemorrhage. Dictated by: Marcy Bob MD, PhD on 01/02/2021 at 7:19 Approved by: Marcy Bob MD, PhD on 01/02/2021 at 7:21
--- NOTE | 2021-01-02 01:13 | ED.NAVMDI ---
HPI - Nausea/Vomiting/Diarrhea <Levar Alvares MD - Last Filed: 01/04/21 12:22> General Chief complaint: Nausea/Vomiting/Diarrhea Stated complaint: Diarrhea, Vomiting, minimally responsive Time Seen by Provider: 01/02/21 00:37 Source: patient, family and EMS Mode of arrival: EMS Limitations: no limitations History of Present Illness HPI Narrative: Patient brought in by EMS from home. Found by 11:00 p.m. tonight with body covered with vomiting and diarrhea and urine. Patient did start with vomiting earlier today. Patient is only responsive to name. Not toxic appearing. Is moving all 4 limbs. 6:00 p.m. last well known by spouse. Found 11:00 p.m.. Was nausea and vomiting in the afternoon. Blood sugar by EMS not hypoglycemia. Related Data Home Medications Medication Instructions Recorded Confirmed cholecalciferol (vitamin D3) 25 25 mcg PO DAILY #0 07/15/10 02/22/20 mcg (1,000 unit) capsule (Vitamin D3) [id number]-yahlyqjf-ibkqfo 1 tab PO DAILY #0 07/28/10 02/22/20 tablet (Multivitamin 50 Plus) lisinopril 10 mg tablet 10 mg PO DAILY 01/31/20 02/22/20 lactobacillus combination no.4 3 3,000 mmu cells PO DAILY 02/22/20 02/22/20 billion cell capsule (Probiotic) omega 4-xzg-flt-fish oil 1,000 mg 1 cap PO DAILY 02/22/20 02/22/20 (120 mg-180 mg) capsule (Fish Oil) pantoprazole 40 mg tablet,delayed 40 mg PO DAILY 02/22/20 02/22/20 release (Protonix) Allergies Allergy/AdvReac Type Severity Reaction Status Date / Time Sulfa (Sulfonamide Allergy unknown Verified 10/23/20 14:29 Antibiotics) Review of Systems <Levar Alvares MD - Last Filed: 01/04/21 12:22> Review of Systems Narrative: GENERAL: Denies chills, fatigue, malaise, fever, sweats. HEENT: Denies sinus pain, ear pain, sore throat RESPIRATORY: Denies dyspnea, cough CARDIOVASCULAR: Denies chest pain, palpitations GASTROINTESTINAL: Complaint nausea, vomiting, and diarrhea : Denies dysuria, frequency, hematuria MUSCULOSKELETAL: denies muscle or bony pain SKIN: Denies rash, skin lesions NEUROLOGIC: Denies weakness, numbness ROS Unobtainable: All systems reviewed & are unremarkable except as noted in HPI and below Patient History <Levar Alvares MD - Last Filed: 01/04/21 12:22> Medical History (Updated 01/02/21 @ 10:11 by Delroy Yadav DO) Hypertension Surgical History History of right hip replacement Family History Mother Diverticulosis of colon Father Abdominal aortic aneurysm Social History marital status: household members: spouse lives independently: Yes caregiver/support person: Yes occupational status: previously employed Previous occupational history: She and her are a [employer] leisure activities: music Smoking Status: Never smoker alcohol intake: current Smoking Status: Never smoker alcohol intake frequency: a few times a week Substance Use Type: does not use Exam <Levar Alvares MD - Last Filed: 01/04/21 12:22> Narrative Exam Narrative: GENERAL: in no distress, not toxic not dyspneic HEAD: Normocephalic. EYES: Pupils equal round No scleral icterus. No injection no discharge ENT: Mucous membranes moist. NECK: Trachea midline. CARDIOVASCULAR: Regular rate and rhythm without murmurs RESPIRATORY: Clear to auscultation. Breath sounds equal bilaterally. No wheezes, rales, or rhonchi. GASTROINTESTINAL: Abdomen soft, non-tender bowel sounds present no peritoneal signs EXTREMITIES: No gross deformities. BACK: No flank tenderness. NEURO: Patient is only responsive to saying her name. No facial droop strong equal technical planner able to lift each arm above her head without difficulty. Raise right leg but slightly more difficult with the left leg. No slurred speech. Has very soft voice. Painful stimuli intact to all 4 limbs SKIN: Warm and dry PSYCH: Not anxious, is cooperative Initial Vital Signs Initial Vital Signs: Vital Signs Pulse Rate 101 H 01/02/21 00:15 Pulse Oximetry 97 01/02/21 00:15 <Delroy Yadav DO - Last Filed: 01/02/21 18:20> Initial Vital Signs Initial Vital Signs: Vital Signs Pulse Rate 101 H 01/02/21 00:15 Pulse Oximetry 97 01/02/21 00:15 Scores <Levar Alvares MD - Last Filed: 01/04/21 12:22> NIH Stroke Scale Level of Conciousness: Not alert, but arousable by minor stim to obey, answer or respond Ask month/age: Answers one question correctly, intubated follow commands Open/close eyes, close hand: Performs both tasks correctly Best gaze horizontal: Normal Visual pretty: No visual loss Facial palsy: Normal symetrical movement Left arm drift: No drift for full 10 sec Right arm drift: No drift for full 10 sec Left leg drift: Some effort against gravity, cannot maintain, drifts down to bed Right leg drift: No drift for full 5 sec Limb ataxia: Absent Sensory on face/arms/legs: Normal, no sensory loss Best language: Mild to moderate, slurs some words Dysarthria: Mild to mod,some slurring Extinction or inattention: No abnormality Total NIH Stroke scale score: 6 <Delroy Yadav DO - Last Filed: 01/02/21 18:20> NIH Stroke Scale Total NIH Stroke scale score: 6 Course <Levar Alvares MD - Last Filed: 01/04/21 12:22> Course Course Narrative: No new issues during course of stay 4:15 a.m., [facility] was contacted and we will have to wait for available bed. 7:00 a.m.. Sign out to Dr Yadav, awaiting for a bed availability and then need to call hospitalist at [facility] Orders Ordered: Discontinued Medications Sodium Chloride (Normal Saline 0.9%) 1,000 mls @ 1,000 mls/hr IV BOLUS ONE Stop: 01/02/21 01:56 Last Infusion: 01/02/21 04:08 Dose: 0 mls/hr Documented by: Admin: 01/02/21 01:59 Dose: 1,000 mls/hr Documented by: SRIRAM Sodium Chloride (Normal Saline 0.9%) 1,000 mls @ 1,000 mls/hr IV BOLUS ONE Stop: 01/02/21 01:47 Last Admin: 01/02/21 02:00 Dose: Not Given Documented by: SRIRAM Ceftriaxone Sodium 2,000 mg/ (Sodium Chloride) 100 mls @ 200 mls/hr IV NOW ONE Stop: 01/02/21 02:05 Last Infusion: 01/02/21 03:15 Dose: 0 mls/hr Documented by: Admin: 01/02/21 02:36 Dose: 200 mls/hr Documented by: SRIRAM Sodium Chloride (Normal Saline 0.9%) 1,000 mls @ 1,000 mls/hr IV BOLUS ONE Stop: 01/02/21 03:04 Last Infusion: 01/02/21 05:42 Dose: 0 mls/hr Documented by: Admin: 01/02/21 04:08 Dose: 1,000 mls/hr Documented by: SRIRAM Lactated Ringer's (Lactated Ringers) 1,000 mls @ 125 mls/hr IV CONT VIRIDIANA Last Infusion: 01/02/21 17:12 Dose: 0 mls/hr Documented by: Admin: 01/02/21 09:31 Dose: 125 mls/hr Documented by: TOBY Heparin Sodium/Dextrose (Heparin Drip) 25,000 unit in 500 mls @ 17.418 mls/hr IV CONT VIRIDIANA; Protocol Last Titration: 01/02/21 18:40 Dose: 11.99 units/kg/hr, 17.41 mls/hr Documented by: Admin: 01/02/21 17:08 Dose: 12 units/kg/hr, 17.418 mls/hr Documented by: JOSE CARLOS Ondansetron HCl (Ondansetron 4 Mg/2 Ml Inj) 4 mg IV NOW ONE Stop: 01/02/21 00:58 Last Admin: 01/02/21 05:47 Dose: Not Given Documented by: SRIRAM Ondansetron HCl (Ondansetron 4 Mg/2 Ml Inj) 4 mg IV NOW ONE Stop: 01/02/21 00:49 Last Admin: 01/02/21 02:00 Dose: Not Given Documented by: SRIRAM Reevaluation(s) Reevaluation #1: No changes with patient. I spoke with of results of CT scan and stroke. He understands outside window for any intervention. No tPA. He states patient had left hip surgery., does correlate with physical exam and NIH score Time: 03:13 Consultations Consultation #1: Spoke with tele stroke, provider on-call doctor boaz, agrees patient is outside window of any tPA. He will review films and call back. CT angiogram reviewed with him as well. Time: 03:04 Consultation #2: Spoke with Dr. Weaver again, patient outside window for any intervention. Admit for about a workup including echocardiogram and MRI. Consultation #3: Spoke with hospitalist, she will admit. Time: 03:45 Additional Consultation(s): 3:50 a.m.. Spoke with risk assessment consultant dr pastrana, regarding troponin. He recommends patient transferred to [facility], he can follow up patient as she needs transesophageal echocardiogram, given results of troponin and acute stroke. Refers to Neurology rather to anticoagulated. 4:00 a.m., spoke Dr. Subramanian again, does not recommend anticoagulation/heparin as this may be harmful given acute stroke. Regarding the troponin would recommend trending and to see if it elevates. 4:10 a.m., spoke with hospitalist, she understands patient will need transfer for higher level care, complexity of patient requires higher level care Vital Signs Vital signs: Vital Signs - 8 hr 01/02/21 10:30 01/02/21 11:00 01/02/21 11:30 Pulse Rate 85 91 H 97 H Respiratory Rate 15 17 29 H Blood Pressure 101/54 L 104/57 L Pulse Oximetry 93 95 96 01/02/21 11:31 01/02/21 12:00 01/02/21 12:30 Pulse Rate 96 H 86 90 Respiratory Rate 23 27 H 23 Blood Pressure 138/61 137/60 132/62 Pulse Oximetry 96 94 95 01/02/21 13:00 01/02/21 13:30 01/02/21 14:00 Pulse Rate 88 86 85 Respiratory Rate 27 H 21 18 Blood Pressure 130/63 119/58 L 134/63 Pulse Oximetry 95 93 95 01/02/21 14:30 01/02/21 14:31 01/02/21 15:00 Pulse Rate 90 89 89 Respiratory Rate 19 21 18 Blood Pressure 141/63 H 142/65 H Pulse Oximetry 95 95 95 01/02/21 15:30 01/02/21 16:00 01/02/21 16:30 Pulse Rate 98 H 92 H 96 H Respiratory Rate 21 17 24 Blood Pressure 141/76 H 148/70 H Pulse Oximetry 95 94 96 01/02/21 16:31 01/02/21 17:00 01/02/21 17:30 Pulse Rate 95 H 95 H 88 Respiratory Rate 24 25 H 17 Blood Pressure 164/94 H 144/98 H Pulse Oximetry 96 99 96 01/02/21 17:31 01/02/21 17:47 Pulse Rate 92 H 96 H Respiratory Rate 15 21 Blood Pressure 97/68 157/77 H Pulse Oximetry 98 98 <Delroy Yadav, DO - Last Filed: 01/02/21 18:20> Course Additional Information: Patient received in sign-out from Dr. Alvares. I performed an independent history and physical exam. She has no new neurologic findings. She denies any chest pain or shortness of breath. repeat EKGs are non-occlusive however troponin has risen I've discussed with Dr. Pastrana (Cardio) and we have reviewed the findings on echo which raise his concern and he recommends transfer to tertiary center call to . Dr. Roberts (Neuro) has reviewed case and images and recommends Heparin 12U/kg/hr without bolus. Dr. Ruffin ([facility]) Orders Ordered: Discontinued Medications Sodium Chloride (Normal Saline 0.9%) 1,000 mls @ 1,000 mls/hr IV BOLUS ONE Stop: 01/02/21 01:56 Last Infusion: 01/02/21 04:08 Dose: 0 mls/hr Documented by: Admin: 01/02/21 01:59 Dose: 1,000 mls/hr Documented by: SRIRAM Sodium Chloride (Normal Saline 0.9%) 1,000 mls @ 1,000 mls/hr IV BOLUS ONE Stop: 01/02/21 01:47 Last Admin: 01/02/21 02:00 Dose: Not Given Documented by: SRIRAM Ceftriaxone Sodium 2,000 mg/ (Sodium Chloride) 100 mls @ 200 mls/hr IV NOW ONE Stop: 01/02/21 02:05 Last Infusion: 01/02/21 03:15 Dose: 0 mls/hr Documented by: Admin: 01/02/21 02:36 Dose: 200 mls/hr Documented by: SRIRAM Sodium Chloride (Normal Saline 0.9%) 1,000 mls @ 1,000 mls/hr IV BOLUS ONE Stop: 01/02/21 03:04 Last Infusion: 01/02/21 05:42 Dose: 0 mls/hr Documented by: Admin: 01/02/21 04:08 Dose: 1,000 mls/hr Documented by: SRIRAM Lactated Ringer's (Lactated Ringers) 1,000 mls @ 125 mls/hr IV CONT VIRIDIANA Last Infusion: 01/02/21 17:12 Dose: 0 mls/hr Documented by: JOSE CARLOS Admin: 01/02/21 09:31 Dose: 125 mls/hr Documented by: TOBY Heparin Sodium/Dextrose (Heparin Drip) 25,000 unit in 500 mls @ 17.418 mls/hr IV CONT VIRIDIANA; Protocol Last Titration: 01/02/21 18:40 Dose: 11.99 units/kg/hr, 17.41 mls/hr Documented by: JOSE CARLOS Admin: 01/02/21 17:08 Dose: 12 units/kg/hr, 17.418 mls/hr Documented by: JOSE CARLOS Ondansetron HCl (Ondansetron 4 Mg/2 Ml Inj) 4 mg IV NOW ONE Stop: 01/02/21 00:58 Last Admin: 01/02/21 05:47 Dose: Not Given Documented by: SRIRAM Ondansetron HCl (Ondansetron 4 Mg/2 Ml Inj) 4 mg IV NOW ONE Stop: 01/02/21 00:49 Last Admin: 01/02/21 02:00 Dose: Not Given Documented by: SRIRAM Vital Signs Vital signs: Vital Signs - 8 hr 01/02/21 10:30 01/02/21 11:00 01/02/21 11:30 Pulse Rate 85 91 H 97 H Respiratory Rate 15 17 29 H Blood Pressure 101/54 L 104/57 L Pulse Oximetry 93 95 96 01/02/21 11:31 01/02/21 12:00 01/02/21 12:30 Pulse Rate 96 H 86 90 Respiratory Rate 23 27 H 23 Blood Pressure 138/61 137/60 132/62 Pulse Oximetry 96 94 95 01/02/21 13:00 01/02/21 13:30 01/02/21 14:00 Pulse Rate 88 86 85 Respiratory Rate 27 H 21 18 Blood Pressure 130/63 119/58 L 134/63 Pulse Oximetry 95 93 95 01/02/21 14:30 01/02/21 14:31 01/02/21 15:00 Pulse Rate 90 89 89 Respiratory Rate 19 21 18 Blood Pressure 141/63 H 142/65 H Pulse Oximetry 95 95 95 01/02/21 15:30 01/02/21 16:00 01/02/21 16:30 Pulse Rate 98 H 92 H 96 H Respiratory Rate 21 17 24 Blood Pressure 141/76 H 148/70 H Pulse Oximetry 95 94 96 01/02/21 16:31 01/02/21 17:00 01/02/21 17:30 Pulse Rate 95 H 95 H 88 Respiratory Rate 24 25 H 17 Blood Pressure 164/94 H 144/98 H Pulse Oximetry 96 99 96 01/02/21 17:31 01/02/21 17:47 Pulse Rate 92 H 96 H Respiratory Rate 15 21 Blood Pressure 97/68 157/77 H Pulse Oximetry 98 98 MDM - Nausea/Vomiting/Diarrhea <Levar Alvares MD - Last Filed: 01/04/21 12:22> Differential Diagnosis Differential diagnosis: Likely other (Gastroenteritis/stroke/sepsis/SC) Lab Data Result diagrams: 01/02/21 01:05 01/02/21 01:05 Labs: Lab Results 01/02/21 01/02/21 01/02/21 Range/Units 00:44 01:05 01:05 WBC 25.2 H (4.5-11.0) X10^3/uL RBC 4.43 (4.0-5.2) X10^6/uL Hgb 12.7 (12.0-16.0) g/dL Hct 40.2 (36-46) % MCV 90.8 (80-100) fL MCH 28.6 (26-34) PG MCHC 31.5 (30-36) % RDW 14.4 (11.6-14.8) % Plt Count 286 (150-400) X10^3/uL Neut % (Auto) Not Reportable Lymph % (Auto) Not Reportable [place] % (Auto) Not Reportable Eos % (Auto) Not Reportable Baso % (Auto) Not Reportable Lymph # (Auto) Not Reportable [place] # (Auto) Not Reportable Baso # (Auto) Not Reportable Total Counted 100 Seg Neutrophils % 83.0 H (38-70) % Band Neutrophils % 8.0 H (3-7) % Lymphocytes % (Manual) 7.0 L (25-45) % Monocytes % (Manual) 2.0 (2-11) % Neutrophils # (Manual) 33331 H (3356-5721) /uL RBC Morphology Normal morphology PT (10.1-12.7) SECONDS INR (0.9-1.3) APTT (26.4-36.2) SECONDS Sodium 140 (137-145) mmol/L Potassium 3.7 (3.4-5.1) mmol/L Chloride 109 H (98-107) mmol/L Carbon Dioxide 24 (22-32) mmol/L BUN 20 H (7-17) mg/dL Creatinine 1.44 H (0.52-1.04) mg/dL Estimated GFR 35.0 L (>60) mL/min BUN/Creatinine Ratio 13.9 (6-22) Glucose 136 H (80-110) mg/dL Lactate (0.7-2.1) mmol/L Calcium 9.4 (8.4-10.2) mg/dL Total Bilirubin 0.4 (0.2-1.3) mg/dL AST 35 (14-36) IU/L ALT 20 (<35) IU/L Alkaline Phosphatase 69 (38-126) U/L Total Creatine Kinase (30-135) U/L CK-MB (CK-2) CK-MB (CK-2) Rel Index Troponin I (0.01-0.034) ng/mL Total Protein 5.6 L (6.3-8.2) g/dL Albumin 3.3 L (3.5-5.0) g/dL Globulin 2.3 (1.7-4.1) g/dL Albumin/Globulin Ratio 1.4 (1.0-2.8) Procalcitonin (<0.5) ng/mL Urine Color Urine Appearance Urine pH (4.5-8.0) Ur Specific [place] (1.000-1.035) Urine Protein (Negative) Urine Glucose (UA) (Negative) g/dL Urine Ketones (NEGATIVE) Urine Occult Blood (Negative) Urine Nitrate (Negative) Urine Bilirubin (NEGATIVE) Urine Urobilinogen (0.2) E.U./dL Ur Leukocyte Esterase (NEGATIVE) Urine RBC (0-5/HPF) Urine WBC (0-5/HPF) Ur Squamous Epith Cells (0-5/HPF) Urine Bacteria (None) Hyaline Casts (None) Granular Casts (None) Ur Culture Indicated? Chlamy pneumoniae PCR (Not Detect) Adenovirus (PCR) (Not Detect) B. pertussis DNA (PCR) (Not Detecte) B.parapertussis DNA PCR (Not Detecte) Coronavirus OC43 (PCR) (Not Detect) Coronavirus HKU1 (PCR) (Not Detect) Coronavirus 229E (PCR) (Not Detect) SARS-CoV-2 (PCR) Negative (Negative) Coronavirus NL63 (PCR) (Not Detect) Human Metapneumovir PCR (Not Detect) Influenza Type A (PCR) (Not Detect) Influenza Type B (PCR) (Not Detect) M. pneumoniae (PCR) (Not Detect) Parainfluenza 1 (PCR) (Not Detect) Parainfluenza 2 (PCR) (Not Detect) Parainfluenza 3 (PCR) (Not Detect) Parainfluenza 4 (PCR) (Not Detect) RSV (PCR) (Not Detect) Entero/Rhino (PCR) (Not Detect) 01/02/21 01/02/21 01/02/21 Range/Units 01:05 01:05 03:24 WBC (4.5-11.0) X10^3/uL RBC (4.0-5.2) X10^6/uL Hgb (12.0-16.0) g/dL Hct (36-46) % MCV (80-100) fL MCH (26-34) PG MCHC (30-36) % RDW (11.6-14.8) % Plt Count (150-400) X10^3/uL Neut % (Auto) Lymph % (Auto) [place] % (Auto) Eos % (Auto) Baso % (Auto) Lymph # (Auto) [place] # (Auto) Baso # (Auto) Total Counted Seg Neutrophils % (38-70) % Band Neutrophils % (3-7) % Lymphocytes % (Manual) (25-45) % Monocytes % (Manual) (2-11) % Neutrophils # (Manual) (0808-2044) /uL RBC Morphology PT (10.1-12.7) SECONDS INR (0.9-1.3) APTT (26.4-36.2) SECONDS Sodium Cancelled (137-145) mmol/L Potassium Cancelled (3.4-5.1) mmol/L Chloride Cancelled (98-107) mmol/L Carbon Dioxide Cancelled (22-32) mmol/L BUN Cancelled (7-17) mg/dL Creatinine Cancelled (0.52-1.04) mg/dL Estimated GFR Cancelled (>60) mL/min BUN/Creatinine Ratio Cancelled (6-22) Glucose Cancelled (80-110) mg/dL Lactate 3.2 H 1.8 (0.7-2.1) mmol/L Calcium Cancelled (8.4-10.2) mg/dL Total Bilirubin Cancelled (0.2-1.3) mg/dL AST Cancelled (14-36) IU/L ALT Cancelled (<35) IU/L Alkaline Phosphatase Cancelled (38-126) U/L Total Creatine Kinase 41 (30-135) U/L CK-MB (CK-2) TNP CK-MB (CK-2) Rel Index TNP Troponin I 0.175 H* (0.01-0.034) ng/mL Total Protein Cancelled (6.3-8.2) g/dL Albumin Cancelled (3.5-5.0) g/dL Globulin Cancelled (1.7-4.1) g/dL Albumin/Globulin Ratio Cancelled (1.0-2.8) Procalcitonin 7.38 H (<0.5) ng/mL Urine Color Urine Appearance Urine pH (4.5-8.0) Ur Specific [place] (1.000-1.035) Urine Protein (Negative) Urine Glucose (UA) (Negative) g/dL Urine Ketones (NEGATIVE) Urine Occult Blood (Negative) Urine Nitrate (Negative) Urine Bilirubin (NEGATIVE) Urine Urobilinogen (0.2) E.U./dL Ur Leukocyte Esterase (NEGATIVE) Urine RBC (0-5/HPF) Urine WBC (0-5/HPF) Ur Squamous Epith Cells (0-5/HPF) Urine Bacteria (None) Hyaline Casts (None) Granular Casts (None) Ur Culture Indicated? Chlamy pneumoniae PCR (Not Detect) Adenovirus (PCR) (Not Detect) B. pertussis DNA (PCR) (Not Detecte) B.parapertussis DNA PCR (Not Detecte) Coronavirus OC43 (PCR) (Not Detect) Coronavirus HKU1 (PCR) (Not Detect) Coronavirus 229E (PCR) (Not Detect) SARS-CoV-2 (PCR) (Negative) Coronavirus NL63 (PCR) (Not Detect) Human Metapneumovir PCR (Not Detect) Influenza Type A (PCR) (Not Detect) Influenza Type B (PCR) (Not Detect) M. pneumoniae (PCR) (Not Detect) Parainfluenza 1 (PCR) (Not Detect) Parainfluenza 2 (PCR) (Not Detect) Parainfluenza 3 (PCR) (Not Detect) Parainfluenza 4 (PCR) (Not Detect) RSV (PCR) (Not Detect) Entero/Rhino (PCR) (Not Detect) 01/02/21 01/02/21 01/02/21 Range/Units 03:55 05:52 07:30 WBC (4.5-11.0) X10^3/uL RBC (4.0-5.2) X10^6/uL Hgb (12.0-16.0) g/dL Hct (36-46) % MCV (80-100) fL MCH (26-34) PG MCHC (30-36) % RDW (11.6-14.8) % Plt Count (150-400) X10^3/uL Neut % (Auto) Lymph % (Auto) [place] % (Auto) Eos % (Auto) Baso % (Auto) Lymph # (Auto) [place] # (Auto) Baso # (Auto) Total Counted Seg Neutrophils % (38-70) % Band Neutrophils % (3-7) % Lymphocytes % (Manual) (25-45) % Monocytes % (Manual) (2-11) % Neutrophils # (Manual) (2596-9245) /uL RBC Morphology PT (10.1-12.7) SECONDS INR (0.9-1.3) APTT (26.4-36.2) SECONDS Sodium (137-145) mmol/L Potassium (3.4-5.1) mmol/L Chloride (98-107) mmol/L Carbon Dioxide (22-32) mmol/L BUN (7-17) mg/dL Creatinine (0.52-1.04) mg/dL Estimated GFR (>60) mL/min BUN/Creatinine Ratio (6-22) Glucose (80-110) mg/dL Lactate (0.7-2.1) mmol/L Calcium (8.4-10.2) mg/dL Total Bilirubin (0.2-1.3) mg/dL AST (14-36) IU/L ALT (<35) IU/L Alkaline Phosphatase (38-126) U/L Total Creatine Kinase (30-135) U/L CK-MB (CK-2) CK-MB (CK-2) Rel Index Troponin I 2.840 H* (0.01-0.034) ng/mL Total Protein (6.3-8.2) g/dL Albumin (3.5-5.0) g/dL Globulin (1.7-4.1) g/dL Albumin/Globulin Ratio (1.0-2.8) Procalcitonin (<0.5) ng/mL Urine Color Yellow Urine Appearance Clear Urine pH 5.0 (4.5-8.0) Ur Specific [place] <=1.005 (1.000-1.035) Urine Protein 2+ H (Negative) Urine Glucose (UA) Negative (Negative) g/dL Urine Ketones Negative (NEGATIVE) Urine Occult Blood 1+ H (Negative) Urine Nitrate Negative (Negative) Urine Bilirubin Negative (NEGATIVE) Urine Urobilinogen 0.2 (0.2) E.U./dL Ur Leukocyte Esterase Negative (NEGATIVE) Urine RBC 0-1/hpf (0-5/HPF) Urine WBC 1-5/hpf (0-5/HPF) Ur Squamous Epith Cells 0-1 /hpf (0-5/HPF) Urine Bacteria Moderate (10-30) H (None) Hyaline Casts 1-5/lpf (None) Granular Casts 0-1/lpf (None) Ur Culture Indicated? Cult not indicated Chlamy pneumoniae PCR Not detected (Not Detect) Adenovirus (PCR) Not detected (Not Detect) B. pertussis DNA (PCR) Not detected (Not Detecte) B.parapertussis DNA PCR Not detected (Not Detecte) Coronavirus OC43 (PCR) Not detected (Not Detect) Coronavirus HKU1 (PCR) Not detected (Not Detect) Coronavirus 229E (PCR) Not detected (Not Detect) SARS-CoV-2 (PCR) Not detected (Negative) Coronavirus NL63 (PCR) Not detected (Not Detect) Human Metapneumovir PCR Not detected (Not Detect) Influenza Type A (PCR) Not detected (Not Detect) Influenza Type B (PCR) Not detected (Not Detect) M. pneumoniae (PCR) Not detected (Not Detect) Parainfluenza 1 (PCR) Not detected (Not Detect) Parainfluenza 2 (PCR) Not detected (Not Detect) Parainfluenza 3 (PCR) Not detected (Not Detect) Parainfluenza 4 (PCR) Not detected (Not Detect) RSV (PCR) Not detected (Not Detect) Entero/Rhino (PCR) Not detected (Not Detect) 01/02/21 Range/Units 16:05 WBC (4.5-11.0) X10^3/uL RBC (4.0-5.2) X10^6/uL Hgb (12.0-16.0) g/dL Hct (36-46) % MCV (80-100) fL MCH (26-34) PG MCHC (30-36) % RDW (11.6-14.8) % Plt Count (150-400) X10^3/uL Neut % (Auto) Lymph % (Auto) [place] % (Auto) Eos % (Auto) Baso % (Auto) Lymph # (Auto) [place] # (Auto) Baso # (Auto) Total Counted Seg Neutrophils % (38-70) % Band Neutrophils % (3-7) % Lymphocytes % (Manual) (25-45) % Monocytes % (Manual) (2-11) % Neutrophils # (Manual) (4212-7932) /uL RBC Morphology PT 11.2 (10.1-12.7) SECONDS INR 1.0 (0.9-1.3) APTT 22 L (26.4-36.2) SECONDS Sodium (137-145) mmol/L Potassium (3.4-5.1) mmol/L Chloride (98-107) mmol/L Carbon Dioxide (22-32) mmol/L BUN (7-17) mg/dL Creatinine (0.52-1.04) mg/dL Estimated GFR (>60) mL/min BUN/Creatinine Ratio (6-22) Glucose (80-110) mg/dL Lactate (0.7-2.1) mmol/L Calcium (8.4-10.2) mg/dL Total Bilirubin (0.2-1.3) mg/dL AST (14-36) IU/L ALT (<35) IU/L Alkaline Phosphatase (38-126) U/L Total Creatine Kinase (30-135) U/L CK-MB (CK-2) CK-MB (CK-2) Rel Index Troponin I (0.01-0.034) ng/mL Total Protein (6.3-8.2) g/dL Albumin (3.5-5.0) g/dL Globulin (1.7-4.1) g/dL Albumin/Globulin Ratio (1.0-2.8) Procalcitonin (<0.5) ng/mL Urine Color Urine Appearance Urine pH (4.5-8.0) Ur Specific [place] (1.000-1.035) Urine Protein (Negative) Urine Glucose (UA) (Negative) g/dL Urine Ketones (NEGATIVE) Urine Occult Blood (Negative) Urine Nitrate (Negative) Urine Bilirubin (NEGATIVE) Urine Urobilinogen (0.2) E.U./dL Ur Leukocyte Esterase (NEGATIVE) Urine RBC (0-5/HPF) Urine WBC (0-5/HPF) Ur Squamous Epith Cells (0-5/HPF) Urine Bacteria (None) Hyaline Casts (None) Granular Casts (None) Ur Culture Indicated? Chlamy pneumoniae PCR (Not Detect) Adenovirus (PCR) (Not Detect) B. pertussis DNA (PCR) (Not Detecte) B.parapertussis DNA PCR (Not Detecte) Coronavirus OC43 (PCR) (Not Detect) Coronavirus HKU1 (PCR) (Not Detect) Coronavirus 229E (PCR) (Not Detect) SARS-CoV-2 (PCR) (Negative) Coronavirus NL63 (PCR) (Not Detect) Human Metapneumovir PCR (Not Detect) Influenza Type A (PCR) (Not Detect) Influenza Type B (PCR) (Not Detect) M. pneumoniae (PCR) (Not Detect) Parainfluenza 1 (PCR) (Not Detect) Parainfluenza 2 (PCR) (Not Detect) Parainfluenza 3 (PCR) (Not Detect) Parainfluenza 4 (PCR) (Not Detect) RSV (PCR) (Not Detect) Entero/Rhino (PCR) (Not Detect) Imaging Data CT scan - head: Radiologist's Impression: Read by overnight radiologist abnormalities in the temporal lobes and the right occipital lobe have the appearance of acute or subacute infarcts. No shift CTA - brain/neck: Radiologist's Impression: Read by overnight radiologist no significant vascular abnormality. CT scan - abdomen/pelvis: Radiologist's Impression: This is CT scan of chest abdomen and pelvis Read by overnight radiologist. Diffuse small bowel and large bowel wall thickening without obstruction or perforation. Consistent with enterocolitis. Ischemia is not ruled out. But vessels are unremarkable in appearance. No significant chest abnormality ECG Data Interpretation: Normal sinus rhythm no ST elevation or depression normal EKG rate 99 MDM Narrative Medical decision making narrative: Appropriate for admission for balance of stroke workup as well as IV antibiotics and rehydration. Troponin noted, possible stress from events of tonight. EKG no injury pattern. <Delroy Yadav DO - Last Filed: 01/02/21 18:20> Lab Data Labs: Lab Results 01/02/21 01/02/21 01/02/21 Range/Units 00:44 01:05 01:05 WBC 25.2 H (4.5-11.0) X10^3/uL RBC 4.43 (4.0-5.2) X10^6/uL Hgb 12.7 (12.0-16.0) g/dL Hct 40.2 (36-46) % MCV 90.8 (80-100) fL MCH 28.6 (26-34) PG MCHC 31.5 (30-36) % RDW 14.4 (11.6-14.8) % Plt Count 286 (150-400) X10^3/uL Neut % (Auto) Not Reportable Lymph % (Auto) Not Reportable Mingo % (Auto) Not Reportable Eos % (Auto) Not Reportable Baso % (Auto) Not Reportable Lymph # (Auto) Not Reportable [place] # (Auto) Not Reportable Baso # (Auto) Not Reportable Total Counted 100 Seg Neutrophils % 83.0 H (38-70) % Band Neutrophils % 8.0 H (3-7) % Lymphocytes % (Manual) 7.0 L (25-45) % Monocytes % (Manual) 2.0 (2-11) % Neutrophils # (Manual) 43696 H (0870-5206) /uL RBC Morphology Normal morphology PT (10.1-12.7) SECONDS INR (0.9-1.3) APTT (26.4-36.2) SECONDS Sodium 140 (137-145) mmol/L Potassium 3.7 (3.4-5.1) mmol/L Chloride 109 H (98-107) mmol/L Carbon Dioxide 24 (22-32) mmol/L BUN 20 H (7-17) mg/dL Creatinine 1.44 H (0.52-1.04) mg/dL Estimated GFR 35.0 L (>60) mL/min BUN/Creatinine Ratio 13.9 (6-22) Glucose 136 H (80-110) mg/dL Lactate (0.7-2.1) mmol/L Calcium 9.4 (8.4-10.2) mg/dL Total Bilirubin 0.4 (0.2-1.3) mg/dL AST 35 (14-36) IU/L ALT 20 (<35) IU/L Alkaline Phosphatase 69 (38-126) U/L Total Creatine Kinase (30-135) U/L CK-MB (CK-2) CK-MB (CK-2) Rel Index Troponin I (0.01-0.034) ng/mL Total Protein 5.6 L (6.3-8.2) g/dL Albumin 3.3 L (3.5-5.0) g/dL Globulin 2.3 (1.7-4.1) g/dL Albumin/Globulin Ratio 1.4 (1.0-2.8) Procalcitonin (<0.5) ng/mL Urine Color Urine Appearance Urine pH (4.5-8.0) Ur Specific [place] (1.000-1.035) Urine Protein (Negative) Urine Glucose (UA) (Negative) g/dL Urine Ketones (NEGATIVE) Urine Occult Blood (Negative) Urine Nitrate (Negative) Urine Bilirubin (NEGATIVE) Urine Urobilinogen (0.2) E.U./dL Ur Leukocyte Esterase (NEGATIVE) Urine RBC (0-5/HPF) Urine WBC (0-5/HPF) Ur Squamous Epith Cells (0-5/HPF) Urine Bacteria (None) Hyaline Casts (None) Granular Casts (None) Ur Culture Indicated? Chlamy pneumoniae PCR (Not Detect) Adenovirus (PCR) (Not Detect) B. pertussis DNA (PCR) (Not Detecte) B.parapertussis DNA PCR (Not Detecte) Coronavirus OC43 (PCR) (Not Detect) Coronavirus HKU1 (PCR) (Not Detect) Coronavirus 229E (PCR) (Not Detect) SARS-CoV-2 (PCR) Negative (Negative) Coronavirus NL63 (PCR) (Not Detect) Human Metapneumovir PCR (Not Detect) Influenza Type A (PCR) (Not Detect) Influenza Type B (PCR) (Not Detect) M. pneumoniae (PCR) (Not Detect) Parainfluenza 1 (PCR) (Not Detect) Parainfluenza 2 (PCR) (Not Detect) Parainfluenza 3 (PCR) (Not Detect) Parainfluenza 4 (PCR) (Not Detect) RSV (PCR) (Not Detect) Entero/Rhino (PCR) (Not Detect) 01/02/21 01/02/21 01/02/21 Range/Units 01:05 01:05 03:24 WBC (4.5-11.0) X10^3/uL RBC (4.0-5.2) X10^6/uL Hgb (12.0-16.0) g/dL Hct (36-46) % MCV (80-100) fL MCH (26-34) PG MCHC (30-36) % RDW (11.6-14.8) % Plt Count (150-400) X10^3/uL Neut % (Auto) Lymph % (Auto) Mingo % (Auto) Eos % (Auto) Baso % (Auto) Lymph # (Auto) [place] # (Auto) Baso # (Auto) Total Counted Seg Neutrophils % (38-70) % Band Neutrophils % (3-7) % Lymphocytes % (Manual) (25-45) % Monocytes % (Manual) (2-11) % Neutrophils # (Manual) (0179-9657) /uL RBC Morphology PT (10.1-12.7) SECONDS INR (0.9-1.3) APTT (26.4-36.2) SECONDS Sodium Cancelled (137-145) mmol/L Potassium Cancelled (3.4-5.1) mmol/L Chloride Cancelled (98-107) mmol/L Carbon Dioxide Cancelled (22-32) mmol/L BUN Cancelled (7-17) mg/dL Creatinine Cancelled (0.52-1.04) mg/dL Estimated GFR Cancelled (>60) mL/min BUN/Creatinine Ratio Cancelled (6-22) Glucose Cancelled (80-110) mg/dL Lactate 3.2 H 1.8 (0.7-2.1) mmol/L Calcium Cancelled (8.4-10.2) mg/dL Total Bilirubin Cancelled (0.2-1.3) mg/dL AST Cancelled (14-36) IU/L ALT Cancelled (<35) IU/L Alkaline Phosphatase Cancelled (38-126) U/L Total Creatine Kinase 41 (30-135) U/L CK-MB (CK-2) TNP CK-MB (CK-2) Rel Index TNP Troponin I 0.175 H* (0.01-0.034) ng/mL Total Protein Cancelled (6.3-8.2) g/dL Albumin Cancelled (3.5-5.0) g/dL Globulin Cancelled (1.7-4.1) g/dL Albumin/Globulin Ratio Cancelled (1.0-2.8) Procalcitonin 7.38 H (<0.5) ng/mL Urine Color Urine Appearance Urine pH (4.5-8.0) Ur Specific [place] (1.000-1.035) Urine Protein (Negative) Urine Glucose (UA) (Negative) g/dL Urine Ketones (NEGATIVE) Urine Occult Blood (Negative) Urine Nitrate (Negative) Urine Bilirubin (NEGATIVE) Urine Urobilinogen (0.2) E.U./dL Ur Leukocyte Esterase (NEGATIVE) Urine RBC (0-5/HPF) Urine WBC (0-5/HPF) Ur Squamous Epith Cells (0-5/HPF) Urine Bacteria (None) Hyaline Casts (None) Granular Casts (None) Ur Culture Indicated? Chlamy pneumoniae PCR (Not Detect) Adenovirus (PCR) (Not Detect) B. pertussis DNA (PCR) (Not Detecte) B.parapertussis DNA PCR (Not Detecte) Coronavirus OC43 (PCR) (Not Detect) Coronavirus HKU1 (PCR) (Not Detect) Coronavirus 229E (PCR) (Not Detect) SARS-CoV-2 (PCR) (Negative) Coronavirus NL63 (PCR) (Not Detect) Human Metapneumovir PCR (Not Detect) Influenza Type A (PCR) (Not Detect) Influenza Type B (PCR) (Not Detect) M. pneumoniae (PCR) (Not Detect) Parainfluenza 1 (PCR) (Not Detect) Parainfluenza 2 (PCR) (Not Detect) Parainfluenza 3 (PCR) (Not Detect) Parainfluenza 4 (PCR) (Not Detect) RSV (PCR) (Not Detect) Entero/Rhino (PCR) (Not Detect) 01/02/21 01/02/21 01/02/21 Range/Units 03:55 05:52 07:30 WBC (4.5-11.0) X10^3/uL RBC (4.0-5.2) X10^6/uL Hgb (12.0-16.0) g/dL Hct (36-46) % MCV (80-100) fL MCH (26-34) PG MCHC (30-36) % RDW (11.6-14.8) % Plt Count (150-400) X10^3/uL Neut % (Auto) Lymph % (Auto) Mingo % (Auto) Eos % (Auto) Baso % (Auto) Lymph # (Auto) [place] # (Auto) Baso # (Auto) Total Counted Seg Neutrophils % (38-70) % Band Neutrophils % (3-7) % Lymphocytes % (Manual) (25-45) % Monocytes % (Manual) (2-11) % Neutrophils # (Manual) (1792-0050) /uL RBC Morphology PT (10.1-12.7) SECONDS INR (0.9-1.3) APTT (26.4-36.2) SECONDS Sodium (137-145) mmol/L Potassium (3.4-5.1) mmol/L Chloride (98-107) mmol/L Carbon Dioxide (22-32) mmol/L BUN (7-17) mg/dL Creatinine (0.52-1.04) mg/dL Estimated GFR (>60) mL/min BUN/Creatinine Ratio (6-22) Glucose (80-110) mg/dL Lactate (0.7-2.1) mmol/L Calcium (8.4-10.2) mg/dL Total Bilirubin (0.2-1.3) mg/dL AST (14-36) IU/L ALT (<35) IU/L Alkaline Phosphatase (38-126) U/L Total Creatine Kinase (30-135) U/L CK-MB (CK-2) CK-MB (CK-2) Rel Index Troponin I 2.840 H* (0.01-0.034) ng/mL Total Protein (6.3-8.2) g/dL Albumin (3.5-5.0) g/dL Globulin (1.7-4.1) g/dL Albumin/Globulin Ratio (1.0-2.8) Procalcitonin (<0.5) ng/mL Urine Color Yellow Urine Appearance Clear Urine pH 5.0 (4.5-8.0) Ur Specific [place] <=1.005 (1.000-1.035) Urine Protein 2+ H (Negative) Urine Glucose (UA) Negative (Negative) g/dL Urine Ketones Negative (NEGATIVE) Urine Occult Blood 1+ H (Negative) Urine Nitrate Negative (Negative) Urine Bilirubin Negative (NEGATIVE) Urine Urobilinogen 0.2 (0.2) E.U./dL Ur Leukocyte Esterase Negative (NEGATIVE) Urine RBC 0-1/hpf (0-5/HPF) Urine WBC 1-5/hpf (0-5/HPF) Ur Squamous Epith Cells 0-1 /hpf (0-5/HPF) Urine Bacteria Moderate (10-30) H (None) Hyaline Casts 1-5/lpf (None) Granular Casts 0-1/lpf (None) Ur Culture Indicated? Cult not indicated Chlamy pneumoniae PCR Not detected (Not Detect) Adenovirus (PCR) Not detected (Not Detect) B. pertussis DNA (PCR) Not detected (Not Detecte) B.parapertussis DNA PCR Not detected (Not Detecte) Coronavirus OC43 (PCR) Not detected (Not Detect) Coronavirus HKU1 (PCR) Not detected (Not Detect) Coronavirus 229E (PCR) Not detected (Not Detect) SARS-CoV-2 (PCR) Not detected (Negative) Coronavirus NL63 (PCR) Not detected (Not Detect) Human Metapneumovir PCR Not detected (Not Detect) Influenza Type A (PCR) Not detected (Not Detect) Influenza Type B (PCR) Not detected (Not Detect) M. pneumoniae (PCR) Not detected (Not Detect) Parainfluenza 1 (PCR) Not detected (Not Detect) Parainfluenza 2 (PCR) Not detected (Not Detect) Parainfluenza 3 (PCR) Not detected (Not Detect) Parainfluenza 4 (PCR) Not detected (Not Detect) RSV (PCR) Not detected (Not Detect) Entero/Rhino (PCR) Not detected (Not Detect) 01/02/21 Range/Units 16:05 WBC (4.5-11.0) X10^3/uL RBC (4.0-5.2) X10^6/uL Hgb (12.0-16.0) g/dL Hct (36-46) % MCV (80-100) fL MCH (26-34) PG MCHC (30-36) % RDW (11.6-14.8) % Plt Count (150-400) X10^3/uL Neut % (Auto) Lymph % (Auto) [place] % (Auto) Eos % (Auto) Baso % (Auto) Lymph # (Auto) [place] # (Auto) Baso # (Auto) Total Counted Seg Neutrophils % (38-70) % Band Neutrophils % (3-7) % Lymphocytes % (Manual) (25-45) % Monocytes % (Manual) (2-11) % Neutrophils # (Manual) (2905-9589) /uL RBC Morphology PT 11.2 (10.1-12.7) SECONDS INR 1.0 (0.9-1.3) APTT 22 L (26.4-36.2) SECONDS Sodium (137-145) mmol/L Potassium (3.4-5.1) mmol/L Chloride (98-107) mmol/L Carbon Dioxide (22-32) mmol/L BUN (7-17) mg/dL Creatinine (0.52-1.04) mg/dL Estimated GFR (>60) mL/min BUN/Creatinine Ratio (6-22) Glucose (80-110) mg/dL Lactate (0.7-2.1) mmol/L Calcium (8.4-10.2) mg/dL Total Bilirubin (0.2-1.3) mg/dL AST (14-36) IU/L ALT (<35) IU/L Alkaline Phosphatase (38-126) U/L Total Creatine Kinase (30-135) U/L CK-MB (CK-2) CK-MB (CK-2) Rel Index Troponin I (0.01-0.034) ng/mL Total Protein (6.3-8.2) g/dL Albumin (3.5-5.0) g/dL Globulin (1.7-4.1) g/dL Albumin/Globulin Ratio (1.0-2.8) Procalcitonin (<0.5) ng/mL Urine Color Urine Appearance Urine pH (4.5-8.0) Ur Specific [place] (1.000-1.035) Urine Protein (Negative) Urine Glucose (UA) (Negative) g/dL Urine Ketones (NEGATIVE) Urine Occult Blood (Negative) Urine Nitrate (Negative) Urine Bilirubin (NEGATIVE) Urine Urobilinogen (0.2) E.U./dL Ur Leukocyte Esterase (NEGATIVE) Urine RBC (0-5/HPF) Urine WBC (0-5/HPF) Ur Squamous Epith Cells (0-5/HPF) Urine Bacteria (None) Hyaline Casts (None) Granular Casts (None) Ur Culture Indicated? Chlamy pneumoniae PCR (Not Detect) Adenovirus (PCR) (Not Detect) B. pertussis DNA (PCR) (Not Detecte) B.parapertussis DNA PCR (Not Detecte) Coronavirus OC43 (PCR) (Not Detect) Coronavirus HKU1 (PCR) (Not Detect) Coronavirus 229E (PCR) (Not Detect) SARS-CoV-2 (PCR) (Negative) Coronavirus NL63 (PCR) (Not Detect) Human Metapneumovir PCR (Not Detect) Influenza Type A (PCR) (Not Detect) Influenza Type B (PCR) (Not Detect) M. pneumoniae (PCR) (Not Detect) Parainfluenza 1 (PCR) (Not Detect) Parainfluenza 2 (PCR) (Not Detect) Parainfluenza 3 (PCR) (Not Detect) Parainfluenza 4 (PCR) (Not Detect) RSV (PCR) (Not Detect) Entero/Rhino (PCR) (Not Detect) Critical Care Time <Levar Alvares MD - Last Filed: 07/31/21 12:22> Critical Care Time Attestation: Critical Care Time minutes: Critical care time is separate from other billable procedures. This critical care time includes consultation with family and other consulting doctors, review of records, and interpretation of data from labs, EKGs, imaging, etc. <Delroy Yadav DO - Last Filed: 01/02/21 18:20> Critical Care Time Critical Care Time: Yes Total Critical Care Time: 35 Attestation: Critical Care Time minutes:35 Critical care time is separate from other billable procedures. This critical care time includes consultation with family and other consulting doctors, review of records, and interpretation of data from labs, EKGs, imaging, etc. Discharge Plan Departure Patient Disposition: [facility] Clinical Impression: Gastroenteritis, Acute non-ST elevation myocardial infarction (NSTEMI) Stroke Qualifiers: CVA mechanism: unspecified Qualified Code(s): I63.9 - Cerebral infarction, unspecified Prescriptions: No Action cholecalciferol (vitamin D3) [Vitamin D3] 25 mcg (1,000 unit) Capsule 25 mcg PO DAILY Qty: 0 RF: 0 Multivitamin 50 Plus Tablet 1 tab PO DAILY Qty: 0 RF: 0 lisinopril 10 mg tablet 10 mg PO DAILY RF: 0 pantoprazole [Protonix] 40 mg Tablet,Delayed Release (Dr/Ec) 40 mg PO DAILY RF: 0 omega 8-dwv-hsp-fish oil [Fish Oil] 1,000 mg (120 mg-180 mg) Capsule 1 cap PO DAILY RF: 0 Probiotic 3 billion cell Capsule 3,000 mmu cells PO DAILY RF: 0 Referrals: Rebekah Garrett PA-C [Primary Care Provider] -
--- NOTE | 2021-01-02 01:14 | DI.CT.S_ITS ---
PROCEDURE: CT ANGIO HEAD AND NECK INDICATIONS: Altered mental status TECHNIQUE: After the administration of intravenous contrast, 1 mm thick sections acquired from the aortic arch through the Robinson of V[place]. Post-contrast 4.5 mm thick sections then re-acquired from the foramen magnum to the vertex. 3-dimensional zyaucxz-phcbkgspp-ijnxcdrzut (MIP) and/or volume rendering reformats were acquired of the central intracranial vasculature and neck separately. COMPARISON: [facility], CT, CT HEAD/BRAIN WO CON, 01/02/2021, 1:27. FINDINGS: Image quality: Excellent. BRAIN: CSF spaces: Ventricles are normal in size and shape. Basal cisterns are patent. No extra-axial fluid collections. Brain: No midline shift. No intracranial bleeds or masses. Morales-white matter interface appears intact. Skull and face: Calvarium and facial bones appear intact, without suspicious lesions. Orbits appear normal. Sinuses: Mucosal thickening in the left sphenoid sinus. The mastoids are clear. HEAD CT ANGIOGRAPHY: Anterior circulation: Intracranial internal carotid arteries are normal in size and flow. The flow within the paired anterior cerebral arteries is normal and symmetric. The flow within the middle cerebral arteries is normal and symmetric. The anterior communicating artery is seen. No aneurysms are seen. Posterior circulation: Visualized portions of the vertebral arteries demonstrate normal caliber, and join to form a normal appearing basilar artery. Flow within the posterior cerebral arteries is normal and symmetric. Left posterior cerebral artery has variant anatomy. No aneurysms are seen. Dural sinuses demonstrate normal postcontrast enhancement. NECK CT ANGIOGRAPHY: Carotid system: The great vessels demonstrate a conventional anatomy as they arise from the aortic arch. The origins of the common carotid arteries appear patent. The common carotid arteries demonstrate normal caliber and courses. The bifurcation regions are both widely patent. The internal carotid arteries demonstrate normal calibers and courses. Posterior circulation: The origins of the vertebral arteries both appear widely patent. The more superior extracranial portions of both vertebral arteries also demonstrate normal courses and calibers. They join to form a normal appearing basilar artery. Soft tissues: Visualized neck soft tissues demonstrate no suspicious abnormalities. 1.3 centimeter right thyroid nodule and 0.7 centimeter left thyroid nodule noted. Bones: No suspicious bony lesions. Spine degenerative disc disease and facet arthropathy. Visualized cervical spine appears normally aligned. IMPRESSION: 1. No acute intracranial disease process. 2. No large vessel occlusion, hemodynamically significant vascular stenosis, vascular dissection or aneurysm. Any quantitative measurements of stenosis were performed using NASCET criteria. Dictated by: Marcy Bob MD, PhD on 01/02/2021 at 8:22 Approved by: Marcy Bob MD, PhD on 01/02/2021 at 8:30
--- NOTE | 2021-01-02 01:14 | DI.CT.S_ITS ---
PROCEDURE: CT CHEST ABD PEL W CON INDICATIONS: Chest pain , abdominal pain TECHNIQUE: After the administration of oral and intravenous contrast, axial sections acquired from the supraclavicular neck to the pubic symphysis. Coronal and sagittal reformats were performed. For radiation dose reduction, the following was used: automated exposure control, adjustment of mA and/or kV according to patient size. COMPARISON: [facility], CT, CT ANGIO CHEST ABDOMEN PELVIS, 01/31/2020, 17:11. FINDINGS: CHEST: Lungs: Scattered subsegmental atelectasis and/or scarring. No focal consolidation. 3 mm nodule in the subpleural left lower lobe on image 157/26 was present on the prior study, probably stable accounting for slice registration artifact. Pleura: No pleural effusions or pneumothorax. Heart: Heart size is normal. No pericardial effusion. Chest nodes: Normal. Thyroid gland: Heterogeneous appearance of the right lobe of the thyroid is grossly unchanged since 01/31/20. Aorta: Normal in size. Pulmonary arteries: Normal. Esophagus: Normal. ABDOMEN: Liver: Normal. Gallbladder: Grossly unremarkable Bile ducts: Normal. Pancreas: Normal. Spleen: Normal. Adrenals: Normal. Kidneys and ureters: Bilateral renal cortical cysts and scarring, subcentimeter in size. No hydronephrosis. Ureters appear decompressed. Stomach and duodenum: Normal. Bowel: There is extensive diffuse small bowel mural thickening, as well as pancolonic wall thickening. Of note there is a similar appearance of the bowel the prior study from 01/31/20. Appendix appears normal. Other: No free fluid or air. Abdominal nodes: Normal. Aorta and IVC: Normal in size. Ventral wall: Normal. PELVIS: Bladder: Largely collapsed therefore unremarkable Inguinal region: No hernia. Pelvic nodes: Normal. Bones: Bilateral hip arthroplasty with associated streak artifact. Spondylosis and diffuse facet arthropathy. No compression fracture seen. IMPRESSION: Extensive diffuse small bowel and colonic wall thickening, most likely representing enterocolitis of unknown etiology. No evidence of bowel obstruction. This could reflect acute on chronic disease given similar appearance on the prior study. Additional chronic/incidental findings as above. Findings concordant with preliminary study interpretation. Dictated by: Nic Adams M.D. on 01/02/2021 at 8:10 Approved by: Nic Adams M.D. on 01/02/2021 at 8:23
[2021-01-02 01:29] LABS: Lactate (Lactic Acid) 3.2 mmol/L (0.7-2.1)
[2021-01-02 01:30] LABS: Alanine Aminotransferase 20 IU/L (<35); Albumin 3.3 g/dL (3.5-5.0); Albumin Globulin Ratio 1.4 (1.0-2.8); Alkaline Phosphatase 69 U/L (38-126); Aspartate Aminotransferase 35 IU/L (14-36); BUN Creatinine Ratio 13.9 (6-22); Bilirubin Total 0.4 mg/dL (0.2-1.3); Blood Urea Nitrogen 20 mg/dL (7-17); Calcium 9.4 mg/dL (8.4-10.2); Carbon Dioxide 24 mmol/L (22-32); Chloride 109 mmol/L (98-107); Globulin 2.3 g/dL (1.7-4.1); Glucose 136 mg/dL (80-110); HEMOLYSIS < 15 (0-50); Potassium 3.7 mmol/L (3.4-5.1); Sodium 140 mmol/L (137-145); Total Protein 5.6 g/dL (6.3-8.2)
[2021-01-02 01:33] LABS: Add Manual Diff / Slide Review YES; Hematocrit 40.2 % (36-46); Hemoglobin 12.7 g/dL (12.0-16.0); Mean Corpuscular HGB Conc 31.5 % (30-36); Mean Corpuscular Hemoglobin 28.6 PG (26-34); Mean Corpuscular Volume 90.8 fL (80-100); Platelet Count 286 X10^3/uL (150-400); Red Blood Cell Count 4.43 X10^6/uL (4.0-5.2); Red Cell Distribution Width 14.4 % (11.6-14.8); White Blood Cell Count 25.2 X10^3/uL (4.5-11.0)
[2021-01-02 01:44] LABS: Creatine Kinase 41 U/L (30-135)
[2021-01-02 01:57] LABS: COVID19 - ADMIT (NP swab/PCR) Negative (Negative)
[2021-01-02] MEDS: SODIUM CHLORIDE 0.9% 1,000 ML 1000 ML IV ×2 (01:59→04:08)
[2021-01-02 02:00] LABS: Procalcitonin 7.38 ng/mL (<0.5)
[2021-01-02 02:16] LABS: Neutrophils Absolute Manual 22932 /uL (3000-5900); RBC Morphology Normal Morphology; Total Cells Counted 100
[2021-01-02 02:19] LABS: Troponin I 0.175 ng/mL (0.01-0.034)
[2021-01-02] MEDS: cefTRIAXone 2,000 MG in SODIUM CHLORIDE 0.9% 100 ML 200 ML IV (02:36)
[2021-01-02 03:12] LABS: Reflexed Lactate in 2 Hours Y
[2021-01-02 03:40] LABS: Lactate 2HR (Lactic Acid Rflx) 1.8 mmol/L (0.7-2.1)
[2021-01-02 04:01] LABS: Appearance Urine UA CLEAR; Bilirubin Urine UA NEGATIVE (NEGATIVE); Color Urine UA YELLOW; Glucose Urine UA NEGATIVE (Negative); Ketones Urine UA NEGATIVE (NEGATIVE); Leukocyte Esterase Urine UA NEGATIVE (NEGATIVE); Nitrite Urine UA NEGATIVE (Negative); Occult Blood Urine UA 1+ (Negative); Protein Urine UA 2+ (Negative); Specific Gravity Urine UA <=1.005 (1.000-1.035); Urobilinogen Urine UA 0.2 E.U./dL (0.2)
[2021-01-02 04:07] LABS: Hyaline Casts Urine 1-5/LPF; RBC Urine 0-1/HPF (0-5/HPF); Squamous Epithelial Cell Urine 0-1 /HPF (0-5/HPF); WBC Urine 1-5/HPF (0-5/HPF)
[2021-01-02 04:08] LABS: Bacteria Urine Moderate (10-30); Granular Casts Urine 0-1/LPF
[2021-01-02 04:09] LABS: Culture Indicated Urine Cult Not Indicated
[2021-01-02 06:47] LABS: Adenovirus Not Detected (Not Detect); B. parapertussis Not Detected (Not Detecte); Bordetella pertussis Not Detected (Not Detecte); Chlamydophila pneumoniae Not Detected (Not Detect); Coronavirus 229E Not Detected (Not Detect); Coronavirus HKU1 Not Detected (Not Detect); Coronavirus NL 63 Not Detected (Not Detect); Coronavirus OC43 Not Detected (Not Detect); Human Metapneumovirus Not Detected (Not Detect); Human Rhinovirus/Enterovirus Not Detected (Not Detect); Influenza A Not Detected (Not Detect); Influenza B Not Detected (Not Detect); Mycoplasma pneumoniae Not Detected (Not Detect); Parainfluenza Virus 1 Not Detected (Not Detect); Parainfluenza Virus 2 Not Detected (Not Detect); Parainfluenza Virus 3 Not Detected (Not Detect); Parainfluenza Virus 4 Not Detected (Not Detect); Respiratory Syncytial Virus Not Detected (Not Detect); SARS- CoV-2 Not Detected (Not Detecte)
--- NOTE | 2021-01-02 09:26 | PC.NURSE ---
Spoke with pt's and gave an update. Still planning on tx pt to [facility]. Will call if we get an update on bed status
[2021-01-02] MEDS: LACTATED RINGERS 1,000 ML 125 ML IV (09:31)
--- NOTE | 2021-01-02 10:54 | DI.ECHO.S_ITS ---
[place] [facility]---------+ [facility] +---------+ : : [address] : : : : [id number] : : : : Phone: [phone] Echocardiogram Report + + :Name: LISS BRITO Study Date: 01/02/2021 Height: 64 in : :[facility] ReadingLocation: Weight: 160 lb : : Gender: Female BSA: 1.8 m2 : :: 1940 Age: 80 yrs BP: 104/57 mmHg: :Reason For Study: Chest pain : :Ordering Physician: LUCIE, : :JENNIFER Performed By: Zia Mckinley : :Referring: JENNIFER FAULKNER : + + Interpretation Summary The ejection fraction is estimated to be 60-65%. There is a echo lucency noted in the right ventricle. It appears to be attached to the right ventricular free wall. This could be a RV mass or thrombus in transit. Clinical correlation is recommended. Consider CELIA or CT with contrast. There is no significant valvular heart disease. Procedure: A two-dimensional transthoracic echocardiogram with color flow and Doppler was performed. The study quality was technically difficult. There is no prior echocardiogram noted for this patient. Left Ventricle: The left ventricle is normal in size and wall thickness. Left ventricular systolic function is normal. The ejection fraction is estimated to be 60-65%. There are no focal wall motion abnormalities. Diastolic function could not be accurately assessed due to unobtainable data. Right Ventricle: The right ventricle is normal size. There is a echo lucency noted in the right ventricle. It appears to be attached to the right ventricular free wall. This could be a RV mass or thrombus in transit. Clinical correlation is recommended. Consider CELIA or CT with contrast. The right ventricular systolic function is normal. Atria: Both atria are normal in size. There is no Doppler evidence for an interatrial shunt. Mitral Valve: The mitral valve is normal in structure and function. There is no mitral regurgitation noted. Aortic Valve: The aortic valve is normal in structure and function. There is trace aortic regurgitation. Tricuspid Valve: The tricuspid valve is normal in structure and function. There is a trace or physiologic amount of tricuspid regurgitation. Pulmonary artery pressures cannot be estimated because of the lack of a measurable TR jet velocity but the IVC suggests a CVP of around 3 mmHg. Pulmonic Valve: The pulmonic valve is not well visualized. There is no pulmonic valvular regurgitation. Great Vessels: The aortic root is normal size. The aortic arch could not be visualized. The IVC is of normal diameter and collapses greater than 50% with a sniff. This suggests a low right atrial pressure of 3 mm Hg. Pericardium/ Pleura There is no pericardial effusion. There is no pleural effusion. MMode/2D Measurements & Calculations LVIDd: 4.6 cm LVOT diam: 1.9 cm LVIDs: 2.9 cm Ao root diam: 3.0 cm FS: 36.3 % IVSd: 0.74 cm LVPWd: 0.69 cm LV mcdaniel. diameter/BSA (cm/m^2): 2.6 LV sys. diameter/BSA (cm/m^2): 1.7 LA A2 area: 15.7 cm2 RA long axis: 4.5 cm LA A4 area: 15.4 cm2 IVC diam: 2.0 cm LA length (vol): 5.0 cm LA vol: 40.9 ml LA vol index: 23.0 ml/m2 TAPSE_phl: 2.5 cm Doppler Measurements & Calculations Ao V2 max: 190.0 cm/sec LVOT Max Segundo: 166.0 cm/sec Ao V2 mean: 115.0 cm/sec LV V1 max P.0 mmHg Ao max P.0 mmHg LV V1 VTI: 26.2 cm Ao mean P.0 mmHg JEANNINE(I,D): 2.6 cm2 Ao V2 VTI: 28.1 cm JEANNINE(V,D): 2.5 cm2 sev ratio: 0.93 JEANNINE indexed to BSA (cm^2/m^2): 1.5 MV E max segundo: 105.0 cm/sec PA V2 max: 119.0 cm/sec MV A max segundo: 126.0 cm/sec PA V2 mean: 91.8 cm/sec MV E/A: 0.83 PA mean P.0 mmHg Med Peak E' Segundo: 6.3 cm/sec PA pr(Accel): 52.9 mmHg E/E' med: 16.7 Lat Peak E' Segundo: 9.1 cm/sec E/E' lat: 11.6 E/e' average: 14.1 MV dec time: 0.27 sec SV(LVOT): 74.3 ml AV VR_phl: 0.87 JEANNINE(VTI)/BSA_phl: 1.5 MV P1/2t-pr_phl: 79.0 msec Reading Physician:12:48 PM
--- NOTE | 2021-01-02 14:08 | PC.NURSE ---
Pt's asked me to take wedding band / engagement rings off. I attempted to remove with lubricant however knuckle is large and rings could not be removed. is concerned about theft, reassured that rings were very, very difficult to remove.
[2021-01-02] MEDS: HEPARIN DRIP 25,000 UNIT/500 ML IV.SOLN 17.418 UNIT IV (17:08)
[2021-01-02 17:17] LABS: Prothrombin Time 11.2 SECONDS (10.1-12.7)
[2021-01-02 17:20] LABS: PTT Partial Thromboplastin Tim 22 SECONDS (26.4-36.2)
== END 2021-01-02 18:57 | disposition short-term general hospital (02) ==
PROVIDERS: Emergency Provider Emergency Medicine; PCP Student in an Organized Health Care Education/Training Program; Referring Provider Emergency Medicine
DX: I21.4 Non-ST elevation (NSTEMI) myocardial infarction (principal); I63.9 Cerebral infarction, unspecified; K52.9 Noninfective gastroenteritis and colitis, unspecified; Z20.822 Contact with and (suspected) exposure to COVID-19
CPT/HCPCS: 36415; 51702; 70450; 70496; 70498; 71260; 74177; 80053; 81001; 82550; 83605; 84145; 84484; 85007; 85025; 85610; 85730; 87040; 87633; 87635; 93005; 93306; 96361; 96365; 96366; 96367; 99284; 99291; C9803; J0696; J1644; Q9967

== ENCOUNTER → 2023-08-13 12:33 | Outpatient (CLI) | payer OTHER, SELFPAY ==
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
== END ==
PROVIDERS: PCP Student in an Organized Health Care Education/Training Program; Referring Provider Student in an Organized Health Care Education/Training Program; Visit Provider Student in an Organized Health Care Education/Training Program
DX: Z86.73 Personal history of transient ischemic attack (TIA), and cerebral infarction without residual deficits (principal); Z09 Encounter for follow-up examination after completed treatment for conditions other than malignant neoplasm
CPT/HCPCS: 93306

== ENCOUNTER 2025-02-08 17:36 | Emergency (ER) | payer OTHER, SELFPAY ==
[2025-02-08] VITALS (41 sets, daily range): BP systolic 54–123; BP diastolic 30–68; PULSE 87–104; RESP 16–36; TEMP 36.9; O2SAT 87–100
--- NOTE | 2025-02-08 17:45 | DI.RAD.S_ITS ---
PROCEDURE: XR CHEST 1V INDICATIONS: trauma TECHNIQUE: One view of the chest was acquired. COMPARISON: [facility], CR, XR CHEST 1V, 01/31/2020, 16:21. FINDINGS: Surgical changes and devices: None. Lungs and pleura: Lungs are clear. No pleural effusions or pneumothorax. Mediastinum: Mediastinal contours appear normal. Heart size is normal. Bones and chest wall: No suspicious bony lesions. Overlying soft tissues appear unremarkable. IMPRESSION: No acute cardiopulmonary abnormality is seen. Dictated by: Ector Jason M.D. on 02/08/2025 at 18:20 Approved by: Ector Jason M.D. on 02/08/2025 at 18:21
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
[2025-02-08 18:06] LABS: Add Manual Diff / Slide Review NO; Hematocrit 36.4 % (36-46); Hemoglobin 11.9 g/dL (12.0-16.0); Lymphocytes Absolute Auto 2000 /uL (1100-4500); Mean Corpuscular HGB Conc 32.8 % (30-36); Mean Corpuscular Hemoglobin 29.5 PG (26-34); Mean Corpuscular Volume 89.9 fL (80-100); Platelet Count 376 X10^3/uL (150-400)
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
[2025-02-08 18:13] LABS: INR 0.9 (0.9-1.3); Prothrombin Time 10.6 SECONDS (9.4-12.5)
--- NOTE | 2025-02-08 18:15 | DI.RAD.S_ITS ---
PROCEDURE: XR KNEE LT 3V INDICATIONS: trauma TECHNIQUE: 2 views of the knee were acquired. COMPARISON: [facility], CR, XR KNEE RT 3V, 02/08/2025, 18:00. [facility], CR, XR TIBIA FIBULA LT 2V, 02/08/2025, 18:00. FINDINGS: Bones: Suboptimal evaluation of the knee joint. Incompletely evaluated comminuted distal femoral fracture involving the diametaphyseal region with displacement. There is probable involvement of the articular surface at the knee. Likely comminuted fractures at the ankle, incompletely imaged. Soft tissues: No joint effusion. No suspicious soft tissue calcifications. IMPRESSION: 1. Incompletely evaluated comminuted distal femoral fracture, with suspicion of involvement of the articular surface. 2. Likely comminuted fractures at the ankle, incompletely imaged. Comments: Consider CT knee and CT ankle. Dictated by: Ector Jason M.D. on 02/08/2025 at 18:57 Approved by: Ector Jason M.D. on 02/08/2025 at 19:00
--- NOTE | 2025-02-08 18:15 | DI.RAD.S_ITS ---
PROCEDURE: XR TIBIA FIBULA LT 2V INDICATIONS: trauma TECHNIQUE: 2 views of the tibia and fibula were acquired. COMPARISON: None. FINDINGS: Bones: Comminuted displaced fracture of the distal femur, potentially extending to the knee joint. Suspect comminuted fractures at the ankle, incompletely visualized. Additionally, suspect Lisfranc fracture dislocation at the foot, suggested on the lateral tibia and fibula films. Soft tissues: No suspicious soft tissue calcifications or masses. IMPRESSION: 1. Comminuted distal femoral fracture, incompletely evaluated, likely extending to the articular surface. 2. Likely comminuted fractures at the ankle, incompletely visualized. 3. Suspect Lisfranc fracture dislocation at the foot. Comment: Recommend CT knee, CT ankle, and CT foot. Dictated by: Ector Jason M.D. on 02/08/2025 at 19:01 Approved by: Ector Jason M.D. on 02/08/2025 at 19:03
--- NOTE | 2025-02-08 18:15 | DI.RAD.S_ITS ---
PROCEDURE: XR KNEE RT 3V INDICATIONS: trauma TECHNIQUE: 1 views of the knee were acquired. COMPARISON: [facility], CR, XR TIBIA FIBULA LT 2V, 02/08/2025, 18:00. FINDINGS: Bones: A single view of a knee is provided. Is labeled as the right knee, but may potentially be the left knee. There is a severely comminuted incompletely visualized distal femoral fracture extending to the articular surface at the knee. Soft tissues: No joint effusion. No suspicious soft tissue calcifications. IMPRESSION: The knee that has been imaged, potentially the right knee or potentially the left knee, has a markedly comminuted distal femoral fracture extending to the articular surface. A portion of both the femur and tibia are not included on the image. Comment: Recommend clinical correlation to identify which knee this might be. Consider CT knee for further evaluation. Dictated by: Ector Jason M.D. on 02/08/2025 at 19:03 Approved by: Ector Jason M.D. on 02/08/2025 at 19:05
--- NOTE | 2025-02-08 18:15 | DI.RAD.S_ITS ---
PROCEDURE: XR PELVIS 1-2V INDICATIONS: trauma TECHNIQUE: 2 view(s) of the pelvis acquired. COMPARISON: None. FINDINGS: Bones: Bilateral total hip arthroplasties with no evidence of hardware failure or loosening. No fractures or dislocations. No suspicious bony lesions. Soft tissues: Visualized bowel gas pattern is normal. No suspicious soft tissue calcifications. IMPRESSION: No pelvic fracture identified. Dictated by: Ector Jason M.D. on 02/08/2025 at 19:01 Approved by: Ector Jason M.D. on 02/08/2025 at 19:01
[2025-02-08 18:16] LABS: PTT Partial Thromboplastin Tim 19 SECONDS (25.1-36.5)
[2025-02-08 18:18] LABS: Alanine Aminotransferase 46 IU/L (<35); Albumin 3.4 g/dL (3.5-5.0); Albumin Globulin Ratio 1.5 (1.0-2.8); Alkaline Phosphatase 91 U/L (38-126); Blood Urea Nitrogen 14 mg/dL (7-17); Calcium 8.8 mg/dL (8.4-10.2); Carbon Dioxide 21 mmol/L (22-32); Chloride 108 mmol/L (98-107); Estimated Glomerular Filt Rate > 60 mL/min (>60); Ethanol (ETOH) < 10 mg/dL (<10); Globulin 2.3 g/dL (1.7-4.1); Glucose 134 mg/dL (70-99); HEMOLYSIS < 15 (0-50); Lipase 126 U/L (23-300); Potassium 3.5 mmol/L (3.4-5.1); Sodium 136 mmol/L (137-145); Total Protein 5.7 g/dL (6.3-8.2)
[2025-02-08 18:19] LABS: Lactate (Lactic Acid) 2.8 mmol/L (0.7-2.1)
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
[2025-02-08] MEDS: TRANEXAMIC ACID 1,000 MG in SODIUM CHLORIDE 0.9% 100 ML 200 MG IV (18:38)
--- NOTE | 2025-02-08 18:47 | INF.NOTE ---
1847: 3 units of MTP completed infusion at this time. contining to await [facility] thaw from lab. 1851: FFP infusing. Dr Nunez set up for R femoral central line 1854: airlift landing on helipad at this time.
[2025-02-08] MEDS: fentaNYL 100 MCG/2 ML INJ 50 MCG IV (18:56)
[2025-02-08] MEDS: TET,DIPH,PERTUSS(ACELL),VAC/PF 0.5 ML SYRINGE IM (18:58)
--- NOTE | 2025-02-08 19:08 | PC.NURSE ---
Report given to Rika Arreola. Advised no Calcium was given in ED at this time. [facility] reports they are able to infuse in route.
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
[2025-02-08 19:37] LABS: Reflexed Lactate in 2 Hours Y
--- NOTE | 2025-02-08 19:41 | PC.NURSE ---
Pt gave verbal consent for blood transfusion with Dr Man. Due to pt condition, unable to obtain signature.
== END 2025-02-08 19:15 | disposition short-term general hospital (02) ==
PROVIDERS: Emergency Medicine; Emergency Provider Emergency Medicine; PCP Student in an Organized Health Care Education/Training Program
DX: S72.492A Other fracture of lower end of left femur, initial encounter for closed fracture (principal); S72.491A Other fracture of lower end of right femur, initial encounter for closed fracture; S30.811A Abrasion of abdominal wall, initial encounter; S20.319A Abrasion of unspecified front wall of thorax, initial encounter; S89.92XA Unspecified injury of left lower leg, initial encounter; S89.91XA Unspecified injury of right lower leg, initial encounter; M79.602 Pain in left arm; S40.811A Abrasion of right upper arm, initial encounter; S39.93XA Unspecified injury of pelvis, initial encounter; R09.02 Hypoxemia; R10.9 Unspecified abdominal pain; R00.0 Tachycardia, unspecified; I25.2 Old myocardial infarction; I95.9 Hypotension, unspecified; R41.82 Altered mental status, unspecified; Z96.641 Presence of right artificial hip joint; Z23 Encounter for immunization; V89.2XXA Person injured in unspecified motor-vehicle accident, traffic, initial encounter
CPT/HCPCS: 36415; 36430; 71045; 72170; 73562; 73590; 80053; 80320; 83605; 83690; 85025; 85610; 85730; 86850; 86900; 86901; 86927; 90471; 96374; 99285; 99291; 99292; P9016; 90715; G0390; J0690; J3010